=== PATIENT | female | born 1960 | race Caucasian/White ===

== ENCOUNTER 2017-12-01 17:15 | Emergency (ER) | payer MEDICARE, SELFPAY ==
[2017-12-01 17:16] VITALS: BP 168/106; PULSE 99; RESP 17; TEMP 37.3; O2SAT 98; BMI 36.9
--- NOTE | 2017-12-01 19:37 | CT_ITS ---
STUDY: CT ABDOMEN AND PELVIS WITHOUT CONTRAST REASON FOR EXAM: Female, 57 years old. RIGHT FLANK PAIN, RODS IN LUMBAR RADIATION DOSAGE (If Supplied By Facility): CTDIvol = ( 23.06 ) mGy, DLP = ( 1267.61 ) mGycm TECHNIQUE: Transaxial images were obtained from the dome of the diaphragm to the symphysis pubis without oral contrast, and without intravenous contrast. Sagittal and coronal images were reconstructed. Individualized dose optimization techniques were used for this CT. COMPARISON: None. FINDINGS: The visualized lung bases are unremarkable. The visualized portions of the heart are within normal limits. Normal liver. There are surgical clips in the gallbladder fossa consistent with a prior cholecystectomy. No biliary ductal dilatation. Normal spleen. Normal pancreas. Normal bilateral adrenal glands. Normal right kidney. Normal left kidney. Normal visualized stomach. Normal small intestine. There are multiple colonic diverticula consistent with diverticulosis. The appendix is visualized and appears normal. There is diffuse atherosclerotic calcification of the abdominal aorta, without a demonstrated aneurysm. Normal inferior vena cava. Normal retroperitoneum. Normal urinary bladder. The uterus appears absent. No deep pelvic mass. Normal abdominal wall. There is lower lumbar fusion at L4-L5 with bilateral pedicle screws, posterior rods and prior laminectomy. Diffuse degenerative spondylosis noted. CT/Abdomen/Pelvis without Cont IMPRESSION: No acute abnormality. No evidence of renal stone or obstruction. Diverticula the colon without evidence of diverticulitis. No evidence of appendicitis. Degenerative spondylosis. See above. Electronically Signed: Blessing Hernandes MD at 20:40 EST Tel , Service support ,
[2017-12-01 20:07] LABS: Bacteria 0 SEEN /hpf (None Seen); Mucous, Urine 0 SEEN /hpf (<or=2+); Red Blood Cells-Urine 0 SEEN /hpf (0-5)
[2017-12-01 20:08] LABS: Color, Urine Yellow (Yellow); Glucose, Dipstick Normal (Normal); Ketone-Dipstick Negative (Negative); Leukocyte Esterase-Dipstick 500 /ul (Negative); Nitrite-Dipstick Negative (Negative); Occult Blood-Urine 10 /ul (Negative); Protein-Dipstick Negative (Negative); Specific Gravity, Urine 1.015 (1.002-1.030); Urine Bilirubin Dipstick Negative (Negative); Urine Clarity Sl. Cloudy (Clear); Urine Urobilinogen Normal (Normal)
[2017-12-01] MEDS: Ketorolac 60 MG/2 ML Vial IM (20:08)
[2017-12-01 20:25] LABS: Squamous Epithelial Cells - UA 5-10 SEEN /hpf (5-10); White Blood Cells 5-10 SEEN /hpf (0-5)
[2017-12-01 20:26] LABS: Yeast-Urine 1+ /hpf (None Seen)
--- NOTE | 2017-12-01 21:49 | ED.VISSUMM ---
- ER Visit Summary Date of Service: 12/01/17 Chief Complaint: Right side pain History of Present Illness: The patient is a 57 F who states that she chronically has low back pain due to rods in her back. She is supposed to be going to pain management but has gotten the referral yet. Patient states that she fell a couple weeks ago since that time has had pain in her right side wrapping down towards her hip slightly anterior onto the abdomen. She notes it hurts to move. There is been no rashes. No hematuria. Eating and drinking normally. Physical Examination: Febrile vital signs are stable patient is tenderness to palpation along the right abdominal oblique musculature. There is no guarding or rebound. Normal bowel sounds. No ecchymosis. Test Results: Urinalysis contaminated with 5-[address] Otherwise negative[address] the flank was negative. Emergency Department Course and Treatment: Patient received a dose of Toradol. Repeat examination finds her sleeping. An oars report was performed she does have [place] at home. She also gets Flexeril. I believe the patient most likely has a oblique muscle strain possibly even a small tear and should recover with supportive treatment. Impression: 1. Right abdominal oblique strain This note was generated with [employer] dictation software. It may contain incorrect words, spelling, and punctuation that were not noted in review of the chart prior to signing ED Disposition - Plan for ED Patient: Disposition: Home or Assisted Living Chief Complaint: Back Instructions: ED Strain Abdominal Muscle Referrals: Malik Torres MD [Primary Care Provider] - 1 Week if not improving
[2017-12-01 22:00] VITALS: BP 154/70; PULSE 78; RESP 18; O2SAT 96
== END 2017-12-01 22:00 | disposition home or self-care (01) ==
PROVIDERS: Emergency Provider Emergency Medicine; Family Provider Family Medicine; PCP Family Medicine
DX: S39.011A Strain of muscle, fascia and tendon of abdomen, initial encounter (principal); W19.XXXA Unspecified fall, initial encounter; Y93.9 Activity, unspecified; Y92.9 Unspecified place or not applicable; I25.10 Atherosclerotic heart disease of native coronary artery without angina pectoris; E11.9 Type 2 diabetes mellitus without complications; Z79.4 Long term (current) use of insulin; J44.9 Chronic obstructive pulmonary disease, unspecified; Z72.0 Tobacco use; K21.9 Gastro-esophageal reflux disease without esophagitis; M54.5 Low back pain; G89.29 Other chronic pain; Z79.01 Long term (current) use of anticoagulants; Z79.899 Other long term (current) drug therapy
CPT/HCPCS: 74176; 81001; 96372; 99282

== ENCOUNTER → 2017-12-13 10:43 | Outpatient (CLI) | payer MEDICARE, SELFPAY ==
--- NOTE | 2017-12-13 10:49 | RAD_ITS ---
STUDY: X-RAY - PELVIS AND BILATERAL HIPS REASON FOR EXAM: Female, 57 years old. Right hip pain. TECHNIQUE: Radiological exam, hip, bilateral, with pelvis when performed; minimum of 5 views COMPARISON: None. FINDINGS: There is a non-specific bowel gas pattern. Normal visualized soft tissue structures. There is evidence of posterior fusion of the lumbosacral spine with L4 and L5 laminectomies. Normal bilateral iliac wings, sacroiliac joints and visualized sacrum. Normal bilateral superior and inferior pubic rami. Normal pubic symphysis. Normal bilateral ischial tuberosities. Normal visualized right femoral head. There is osteoarthritic spur formation of the right acetabular rim. There is mild articular joint space narrowing of the right hip. Normal visualized left femoral head. There is osteoarthritic spur formation of the left acetabular rim. There is mild articular joint space narrowing of the left hip. RAD/Hips B/L min 2 views w/ Pelvis IMPRESSION: 1. Mild degenerative changes of the hips. 2. Surgical changes of the lower lumbar spine. Electronically Signed: Oscar Olson DO at 18:18 EST Tel [phone], Service support ,
--- NOTE | 2017-12-13 10:51 | RAD_ITS ---
STUDY: X-RAY - LUMBAR SPINE REASON FOR EXAM: Female, 57 years old. Chronic back pain. TECHNIQUE: 5 view(s) of the lumbar spine were obtained. COMPARISON: April 22, 2015. FINDINGS: There is mild flattening of the lumbar lordosis. There is no substantial scoliosis. There is a normal alignment of the vertebrae. Again seen is posterior fusion of L3-S1. The hardware is intact and in satisfactory position. There is evidence of L4 and L5 laminectomies. There is disc space narrowing and endplate spondylosis most marked at L3-4. This appears stable. There is no evidence of acute fracture or loss of vertebral axial height. There is no demonstrated spondylolysis of the pars interarticulares. There is atherosclerotic calcification of the abdominal aorta without a demonstrated aneurysm. RAD/L/S Spine Min 4 Views IMPRESSION: 1. Posterior fusion of L4 S1 with laminectomies. This is unchanged from prior study. 2. Minimal degenerative changes of the upper lumbar spine stable when compared to the previous exam. Electronically Signed: Oscar Olson DO at 16:55 EST Tel [phone], Service support ,
[2017-12-13 11:11] LABS: Mucous, Urine 0 SEEN /hpf (<or=2+)
[2017-12-13 12:14] LABS: Color, Urine Yellow (Yellow); Glucose, Dipstick 250 mg/dl (Normal); Ketone-Dipstick 5 mg/dl (Negative); Leukocyte Esterase-Dipstick 500 /ul (Negative); Nitrite-Dipstick Positive (Negative); Occult Blood-Urine 10 /ul (Negative); Protein-Dipstick 30 mg/dl (Negative); Specific Gravity, Urine 1.025 (1.002-1.030); Urine Bilirubin Dipstick Negative (Negative); Urine Clarity Sl. Cloudy (Clear); Urine Urobilinogen Normal (Normal)
[2017-12-13 12:21] LABS: Bacteria 2+ /hpf (None Seen); Red Blood Cells-Urine 0-5 SEEN /hpf (0-5); Squamous Epithelial Cells - UA 0-5 SEEN /hpf (5-10); White Blood Cells 50-100 SEEN /hpf (0-5)
[2017-12-13 12:24] LABS: Absolute Neutrophil Count 5.7 X10^3/uL (2.0-7.7); Basophil# 0.03 X10^3/uL; Basophil% 0.4 % (0-1); Eosinophil# 0.32 X10^3/uL; Eosinophils% 3.7 % (0-5); Hematocrit 43.7 % (37-47); Hemoglobin 14.5 g/dl (12.0-15.0); Lymphocyte % 24.6 % (19-41); Mean Corp Hgb Conc 33.2 g/gl (32-36); Mean Corpuscular Hgb 29.5 pg (27.0-32.0); Mean Corpuscular Volume 88.8 fL (81-99); Mean Platelet Vol. 10.4 fl (6.2-12.0); Monocyte% 4.7 % (0-10); Neutrophil # 5.68 X10^3/uL (2.7-7.7); Neutrophil % 66.4 % (47-70); Platelet Count 258 K/mm3 (150-450); RBC Distribution Width CV 13.6 % (11.6-14.6); RBC Distribution Width SD 43.6 fl (35.1-43.9); Red Blood Count 4.92 M/mm3 (4.2-5.4); White Blood Count 8.6 K/mm3 (4.4-11.0)
[2017-12-13 12:32] LABS: POSITIVE COUNT NO; POSITIVE DIFFERENTIAL NO; POSITIVE MORPHOLOGY NO
[2017-12-13 12:39] LABS: Vitamin B12 570 pg/mL (211-911)
[2017-12-13 12:42] LABS: Microalbumin,Random Urine 36.1 mg/L (NO RANGE EST.); Microalbumin:Creatinine Ratio 14.2 mg/g CRE (<30 mg/g CRE)
[2017-12-13 12:44] LABS: Amphetamine Urine VISTA NEGATIVE (<1000 ng/mL); Barbiturate Urine VISTA NEGATIVE (< 200 ng/mL); Benzodiazepine Urine VISTA NEGATIVE (< 200 ng/mL); Cocaine Urine VISTA NEGATIVE (< 300 ng/mL); Ecstacy Urine VISTA POSITIVE (< 500 ng/mL); Methadone Urine VISTA NEGATIVE (< 300 ng/mL); PCP Urine VISTA NEGATIVE (< 25 ng/mL); THC Urine VISTA NEGATIVE (< 50 ng/mL); Vista UDS pH Range 5
[2017-12-13 12:58] LABS: ALB/GLOB Ratio 0.9 RATIO (0.9-2.4); AST(SGOT) 16 U/L (15-37); Alanine Aminotransfer ALT/SGPT 31 U/L (13-56); Albumin, Serum 3.5 g/dL (3.2-5.0); Alkaline Phosphatase 78 U/L (45-117); Anion Gap 9 (5-15); BUN 16 mg/dL (7-18); BUN/Creat Ratio 16.8 RATIO (10-20); Calcium,Total 8.5 mg/dL (8.5-10.1); Chloride 103 mmol/L (98-107); Cholesterol 216 mg/dL (200); Creatinine, Serum 0.95 mg/dL (0.55-1.02); EST Glomerular Filtration Rate 64 mL/min (>60); Est Glom Filt Rate - Afr Amer 78 mL/min (>60); Glucose 246 mg/dL (74-106); High Density Lipoprotein 33 mg/dL; Potassium 4.5 mmol/L (3.5-5.1); Protein, Total 7.5 g/dL (6.4-8.2); Sodium Level 138 mmol/L (136-145); Thyroid Stim Hormone (TSH) 2.49 uIU/mL (0.358-3.74); Triglycerides 488 mg/dL
[2017-12-13 13:05] LABS: Hemoglobin A1c 9.4 % (4.2-6.3)
== END ==
PROVIDERS: Family Provider Family Medicine; PCP Family Medicine; Visit Provider Family Medicine
DX: M16.0 Bilateral primary osteoarthritis of hip (principal); M48.061 Spinal stenosis, lumbar region without neurogenic claudication; M47.896 Other spondylosis, lumbar region; I25.10 Atherosclerotic heart disease of native coronary artery without angina pectoris; G62.9 Polyneuropathy, unspecified
CPT/HCPCS: 36415; 72110; 73521; 80053; 80061; 80307; 81001; 82043; 82570; 82607; 83036; 84443; 85025; 87086; 87088

== ENCOUNTER 2018-01-05 15:46 | Emergency (ER) | payer MEDICARE, SELFPAY ==
[2018-01-05 15:47] VITALS: BP 132/79; PULSE 115; RESP 14; TEMP 37.3; O2SAT 97; BMI 36.2
[2018-01-05] MEDS: 0.9% Normal Saline 1,000 ML 1000 ML IV (16:31)
[2018-01-05 16:44] LABS: Absolute Lymphocyte Count 0.42 X10^3/ul (0.83-4.51); Basophil# 0.01 X10^3/uL; Basophil% 0.1 % (0-1); Eosinophil# 0.14 X10^3/uL; Eosinophils% 1.4 % (0-5); Hematocrit 45.4 % (37-47); Hemoglobin 15.3 g/dl (12.0-15.0); Lymphocyte # 0.42 X10^3/ul (4.0); Lymphocyte % 4.3 % (19-41); Mean Corp Hgb Conc 33.7 g/gl (32-36); Mean Corpuscular Hgb 29.7 pg (27.0-32.0); Mean Corpuscular Volume 88.2 fL (81-99); Mean Platelet Vol. 10.2 fl (6.2-12.0); Monocyte# 0.22 X10^3/uL; Monocyte% 2.2 % (0-10); Neutrophil % 91.9 % (47-70); Platelet Count 213 K/mm3 (150-450); RBC Distribution Width CV 13.5 % (11.6-14.6); RBC Distribution Width SD 43.2 fl (35.1-43.9); Red Blood Count 5.15 M/mm3 (4.2-5.4); White Blood Count 9.8 K/mm3 (4.4-11.0)
[2018-01-05 16:48] LABS: Differential Indicated SCAN CRITERIA MET; POSITIVE COUNT NO; POSITIVE DIFFERENTIAL YES; POSITIVE MORPHOLOGY NO
[2018-01-05 16:54] LABS: Anion Gap 8 (5-15); BUN 21 mg/dL (7-18); BUN/Creat Ratio 19.4 RATIO (10-20); Calcium,Total 8.2 mg/dL (8.5-10.1); Chloride 103 mmol/L (98-107); Creatinine, Serum 1.08 mg/dL (0.55-1.02); EST Glomerular Filtration Rate 55 mL/min (>60); Est Glom Filt Rate - Afr Amer 67 mL/min (>60); Estimated Creatinine Clearance 59.34 ml/min; Glucose 251 mg/dL (74-106); Potassium 4.4 mmol/L (3.5-5.1); Sodium Level 136 mmol/L (136-145)
[2018-01-05 17:31] LABS: Anisocytosis RARE; Platelet Estimate ADEQUATE (ADEQ)
[2018-01-05] MEDS: DiphenhydrAMINE 50 MG/ML Syringe 25 MG IV (17:57)
[2018-01-05] MEDS: Ketorolac 30 MG/ML Syringe IV (17:58)
[2018-01-05] MEDS: proCHLORPERazine 10 MG/2 ML Vial IV (17:58)
[2018-01-05 17:59] VITALS: BP 146/71; PULSE 113; RESP 15; O2SAT 97
--- NOTE | 2018-01-05 18:20 | ED.RN ---
+ C-diff reported to Dr. Howe.
--- NOTE | 2018-01-05 18:25 | ED.VISSUMM ---
- ER Visit Summary Date of Service: 01/05/18 Chief Complaint: Nausea and vomiting History of Present Illness: The patient is a [address] Torres. She reports that she has had crampy abdominal pain since this morning. Is 7 out of 10 at worst and she is pain-free currently. States is worsened by eating and relieved by nothing. She is vomited 7 times. No blood or emesis. She denies any diarrhea. She reports that her last bowel movement was today and it was loose. No blood in her stools or black tarry stools. She does complain of subjective fever and chills. Patient denies sick contacts. Has not been camping out of the country. No possible bad food exposure. Does not drink well water. No recent antibiotic use. Physical Examination: Vitals: Stable. Afebrile. General: Well-nourished and well-developed. Head: Normocephalic atraumatic. Neck: Supple, no lymphadenopathy. No JVD. Nontender. Cardiovascular: Regular rate and rhythm. No murmurs. Respiratory: No respiratory distress. Clear to auscultation bilaterally. Abdominal: Soft, nontender, nondistended, normal bowel sounds. No guarding, rebound, or peritoneal signs. Back: Nontender. Extremities: Nontender, no edema. Skin: Normal color, no rash. Neurologic: Alert and oriented ?3. Cranial nerves II through XII are intact. Normal strength and sensation. Psych: Normal affect. Test Results: CBC is marked for hemoglobin of 15.3, segmented neutrophils of 92, monocytes of 4. Chem-7 is more for glucose 251, BUN 21, creatinine 1.08, calcium 8.2. Patient did have an episode of diarrhea in the emergency department and this was sent to the lab. It was positive for Clostridium difficile. Emergency Department Course and Treatment: Patient was initially treated with Phenergan and morphine IV. She asked for a dose of Toradol and was given this. When her C. difficile returned she was given vancomycin p.o. Treatment Plan: Patient be discharged on vancomycin, [place], and Zofran. Instructed to follow-up with Dr. Landaverde in 10-14 days for another exam. Return to the emergency department if she is unable to keep the antibiotics down or for any other concerns. Disposition: To home in improved and stable condition. Impression: 1. Vomiting/diarrhea. 2. Clostridium difficile colitis. This note was generated with [employer] dictation software. It may contain incorrect words, spelling, and punctuation that were not noted in review of the chart prior to signing ED Disposition - Plan for ED Patient: Chief Complaint: General Illness Instructions: Clostridium difficile Infection Prescriptions: Hydrocodone Bitart/Apap 5-325 [[place] 5/325] 1 - 2 tablet PO Q4H PRN PRN 3 Days #12 tablet PRN Reason: Pain Ondansetron [Zofran Odt] 4 mg PO Q8H PRN PRN #10 tablet PRN Reason: Nausea Vancomycin [Vancocin] 125 mg PO Q6H #56 capsule Referrals: Malik Torres MD [Primary Care Provider] - 1-2 Weeks
[2018-01-05 19:12] VITALS: BP 130/83; PULSE 110; RESP 13; O2SAT 95
--- NOTE | 2018-01-05 19:18 | ED.RN ---
Verbal and written d/c instructions given. All questions answered. Extensive teaching complete about home care for c-diff. Gait slow and steady out of department.
== END 2018-01-05 19:19 | disposition home or self-care (01) ==
PROVIDERS: Emergency Provider Emergency Medicine; Family Provider Family Medicine; PCP Family Medicine
DX: A04.72 Enterocolitis due to Clostridium difficile, not specified as recurrent (principal); R11.2 Nausea with vomiting, unspecified; I25.10 Atherosclerotic heart disease of native coronary artery without angina pectoris; I10 Essential (primary) hypertension; E11.9 Type 2 diabetes mellitus without complications; Z79.4 Long term (current) use of insulin; J44.9 Chronic obstructive pulmonary disease, unspecified; Z79.01 Long term (current) use of anticoagulants; Z79.899 Other long term (current) drug therapy; Z72.0 Tobacco use
CPT/HCPCS: 80048; 85025; 87493; 96361; 96374; 96375; 99285; J7030; J7050; A4216

== ENCOUNTER → 2018-01-30 14:01 | Outpatient (CLI) | payer MEDICARE, SELFPAY | PROVIDERS: Family Provider Family Medicine; PCP Family Medicine; Visit Provider Family Medicine | DX: A04.72 Enterocolitis due to Clostridium difficile, not specified as recurrent (principal) | CPT/HCPCS: 87493 ==

== ENCOUNTER 2018-03-26 10:34 | Emergency (ER) | payer MEDICARE, SELFPAY ==
[2018-03-26 10:35] VITALS: BP 139/69; PULSE 97; RESP 15; TEMP 37; BMI 35.5
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
--- NOTE | 2018-03-26 11:01 | ED.DEP ---
ED Disposition - Plan for ED Patient: Disposition: Home or Assisted Living Chief Complaint: Back Instructions: ED Spasm Back No Trauma Prescriptions: Hydrocodone/Acetaminophen [[place] 5-325 Tablet] 1 ea PO Q4H PRN PRN #10 tab PRN Reason: Pain Referrals: Ralph Mcclendon MD [Primary Care Provider] - 3-5 Days if not improving Additional Instructions: [place] for pain. Call follow-up your primary care physician. Return to ER if increasing pain, fever, bowel or bladder incontinence or leg weakness.
[2018-03-26] MEDS: HYDROcodone Bitartrate/Apap 5/325 Tablet PO (11:06)
[2018-03-26] MEDS: Ketorolac 60 MG/2 ML Vial IM (11:06)
[2018-03-26 11:08] VITALS: BP 154/87; PULSE 91; TEMP -8.8; TEMP 16; O2SAT 97
== END 2018-03-26 11:30 | disposition home or self-care (01) ==
PROVIDERS: Emergency Provider Emergency Medicine; Family Provider Family Medicine; PCP Family Medicine
DX: M54.5 Low back pain (principal); G89.29 Other chronic pain; Z98.1 Arthrodesis status; I25.10 Atherosclerotic heart disease of native coronary artery without angina pectoris; I25.2 Old myocardial infarction; E11.9 Type 2 diabetes mellitus without complications; J44.9 Chronic obstructive pulmonary disease, unspecified; Z95.5 Presence of coronary angioplasty implant and graft; Z79.4 Long term (current) use of insulin; Z79.01 Long term (current) use of anticoagulants; Z79.82 Long term (current) use of aspirin; Z79.899 Other long term (current) drug therapy; Z72.0 Tobacco use
CPT/HCPCS: 96372; 99282

== ENCOUNTER 2018-05-05 18:07 | Emergency (ER) | payer MEDICARE, SELFPAY ==
[2018-05-05 18:08] VITALS: BP 133/74; PULSE 89; RESP 18; TEMP 36.9; O2SAT 99; BMI 35.2
--- NOTE | 2018-05-05 18:50 | ED.VISSUMM ---
- ER Visit Summary Date of Service: 05/05/18 Chief Complaint: Avulsed right great toenail History of Present Illness: The patient is a 57 F insulin-dependent diabetic and history of CAD with 2 cardiac stents. She was removing her show an that her nail stuck in the shoe and pulled off her entire right great toenail. This occurred several hours ago. She said it was bleeding but has since stopped. Physical Examination: Well-appearing middle-age female. Vital signs are stable afebrile. H EENT exam unremarkable. Neck nontender. Lungs clear to auscultation bilaterally. Heart regular rate and rhythm no murmur. Abdomen soft nontender. She is moving all 4 extremities. Neurovascular intact. Her right great toenail is completely avulsed and gone. Currently there is no active bleeding. No signs of infection. No bony deformity. I did clean the area and placed half inch packing gauze underneath the proximal nail bed to allow the new nail to grow out. Patient was instructed to keep this going until the new nail grew out if it was going to. Test Results: None Emergency Department Course and Treatment: Area will be cleaned and dressed she will be discharged home. Patient may try to get some fake nails and keep it underneath the proximal cuticle to allow the new nail to grow out. Treatment Plan: Watch for any signs of infection. Disposition: Discharge Impression: Right great toenail avulsed This note was generated with [employer] dictation software. It may contain incorrect words, spelling, and punctuation that were not noted in review of the chart prior to signing ED Disposition - Plan for ED Patient: Chief Complaint: Lower Extremity Injury Referrals: Ralph Mcclendon MD [Primary Care Provider] -
--- NOTE | 2018-05-05 18:52 | ED.DEP ---
ED Disposition - Plan for ED Patient: Disposition: Home or Assisted Living Chief Complaint: Lower Extremity Injury Instructions: ED Avulsion Nail Complete Referrals: Ralph Mcclendon MD [Primary Care Provider] - As Needed Additional Instructions: Keep area clean. Bike ointment to prevent infection. Return if redness, pus or large swelling these could be signs of infection. Place a fake nail underneath the proximal nail bed to allow the new nail to grow out. Or you may also use the packing material.
[2018-05-05 19:04] VITALS: RESP 18
== END 2018-05-05 19:05 | disposition home or self-care (01) ==
LOC: ED 18:56
PROVIDERS: Emergency Provider Emergency Medicine; Family Provider Family Medicine; PCP Family Medicine
DX: S91.201A Unspecified open wound of right great toe with damage to nail, initial encounter (principal); X58.XXXA Exposure to other specified factors, initial encounter; Y93.89 Activity, other specified; Y92.9 Unspecified place or not applicable; I25.10 Atherosclerotic heart disease of native coronary artery without angina pectoris; I25.2 Old myocardial infarction; Z95.5 Presence of coronary angioplasty implant and graft; E11.9 Type 2 diabetes mellitus without complications; Z79.4 Long term (current) use of insulin; Z79.01 Long term (current) use of anticoagulants; Z79.899 Other long term (current) drug therapy; Z72.0 Tobacco use
CPT/HCPCS: 99282

== ENCOUNTER 2018-10-29 11:30 | Emergency (ER) | payer MEDICARE, MEDICAID, SELFPAY ==
[2018-10-29 11:31] VITALS: BP 126/66; PULSE 94; RESP 17; TEMP 36.9; O2SAT 97; BMI 36.1
--- NOTE | 2018-10-29 11:55 | RAD_ITS ---
STUDY: X-RAY - RIGHT FOOT CLINICAL: Female, 58 years old. Fall. Right foot and ankle pain. TECHNIQUE: 3 view(s) of the foot. COMPARISON: October 24, 2017 FINDINGS: There is an inferior calcaneal spur with ossification of the plantar fascia. Normal visualized subtalar, talonavicular, calcaneocuboid, tarsal and tarsometatarsal articulations. There is a minimally displaced transverse fracture of the base of the fifth metatarsal. Normal metatarsophalangeal joint of the great toe. Normal tibial and fibular sesamoid bones. Normal interphalangeal joint of the great toe. Normal phalanges of the great toe. Normal second through fifth metatarsophalangeal joints. Normal interphalangeal joints and phalanges of the lesser toes. The soft tissue structures are otherwise unremarkable. RAD/Foot min 3 Views IMPRESSION: Fifth metatarsal fracture as described. Electronically Signed: Vasyl Cooper MD at 12:39 EST , Service support ,
--- NOTE | 2018-10-29 11:55 | RAD_ITS ---
STUDY: X-RAY - RIGHT ANKLE REASON FOR EXAM: Female, 58 years old. Follow-up with right foot and ankle pain. TECHNIQUE: 3 view(s) of the ankle. COMPARISON: None. FINDINGS: There is generalized osteopenia. Normal visualized distal tibia and fibula. Normal medial and lateral malleoli. Normal tibiotalar articulation and ankle mortise. There is an inferior calcaneal spur. The visualized subtalar, talonavicular, calcaneocuboid and tarsal articulations are normal. There is ossification of the plantar fascia. There is a transverse fracture of the base of the fifth metatarsal. RAD/Ankle min 3 Views IMPRESSION: Transverse fracture of the base of the fifth metatarsal with minimal displacement. Electronically Signed: Vasyl Cooper MD at 12:25 EST , Service support ,
--- NOTE | 2018-10-29 13:10 | ED.DCSUM_ITS ---
- ER Visit Summary Date of Service: 10/29/18 Chief Complaint: Foot injury History of Present Illness: The patient is a 58 F presenting secondary to a foot injury. Patient reports that 2 days ago she suffered a mechanical fall. It was a plantar inversion injury of the right foot. Patient reports that she has been bearing weight on it since then, actually served [employer] 2 days ago, and traveled here from [place] on an airplane yesterday. She reports that this is just the first time she has been able to get it checked out. She denies any other injuries. Physical Examination: Lower extremity exam shows swelling over the midfoot with tenderness to palpation diffusely. Normal range of motion of the toes. Normal capillary refill, normal distal sensation. Minimal tenderness palpation of the lateral malleolus of the ankle. Test Results: X-rays are negative of the ankle. X-rays of the foot show a nondisplaced Ramirez fracture Emergency Department Course and Treatment: Patient presented secondary to a foot injury. X-rays show a Ramirez fracture. Patient was educated on the importance of being nonweightbearing and follow-up with an orthopedist. Patient is from out [facility], but will be returning home after the holidays. She will be placed in a walking boot, and will be given crutches. She will follow-up with an orthopedist upon return home to ensure healing Disposition: Discharge Impression: 1. Right foot Ramirez fracture This note was generated with [employer] dictation software. It may contain incorrect words, spelling, and punctuation that were not noted in review of the chart prior to signing ED Disposition - Plan for ED Patient: Disposition: Home or Assisted Living Chief Complaint: Lower Extremity Injury Diagnosis: Ramirez fracture Instructions: ED Fx Foot Referrals: [facility] Doctor,Out of [Primary Care Provider] - (Followup with an orthopedist immediately upon return home)
[2018-10-29 13:26] VITALS: PULSE 92; RESP 16; O2SAT 99
== END 2018-10-29 13:26 | disposition home or self-care (01) ==
PROVIDERS: Emergency Provider Emergency Medicine
DX: S92.354A Nondisplaced fracture of fifth metatarsal bone, right foot, initial encounter for closed fracture (principal); W18.30XA Fall on same level, unspecified, initial encounter; I10 Essential (primary) hypertension; E11.9 Type 2 diabetes mellitus without complications; Z79.4 Long term (current) use of insulin; Z79.899 Other long term (current) drug therapy
CPT/HCPCS: 73610; 73630; 99284

== ENCOUNTER 2019-07-17 12:46 | Emergency (ER) | payer MEDICARE, MEDICAID, SELFPAY ==
[2019-07-15 14:25] VITALS: BMI 37.5
[2019-07-17 12:47] VITALS: BP 134/64; PULSE 80; RESP 16; TEMP 36.4; O2SAT 98; BMI 40.3
[2019-07-17 12:56] VITALS: BP 134/64; PULSE 80; RESP 16; TEMP 36.4; O2SAT 98
--- NOTE | 2019-07-17 13:33 | ED.VISSUMM ---
- ER Visit Summary Date of Service: 07/17/19 Chief Complaint: Right ankle redness History of Present Illness: The patient is a 58 F who presents with redness and swelling to her right ankle that has been getting worse over the past 3 days. Patient states she had surgery on her right ankle when she was in [place]. Patient is here visiting from [place]. Patient states she was ordered a prescription but was unable to fill it due to cost. Patient denies any fevers or chills. Patient denies any paresthesias or weakness. Patient states that her pain is worse with some movements. Patient denies any discharge or drainage. Physical Examination: Vital signs are stable. Patient is afebrile. Patient is in no acute distress. Skin is warm and dry. There is erythema on the lateral aspect of the right ankle. There is full range of motion of the right ankle. There is no bony crepitance or step-off. There is no discharge or drainage. There is no abscess formation. There is no calf tenderness. Pedal pulses are equal bilaterally. Sensation was intact to light touch in all digits. Capillary refill was less than 2 seconds in all digits. Emergency Department Course and Treatment: Patient was given a prescription for Keflex. Social work was in to talk to the patient regarding prescription assistance. Patient was instructed to follow-up with her primary care physician and orthopedic surgeon when she gets back to [place]. Patient understood and was agreeable with the plan. All questions were answered. Disposition: Discharge home Impression: Cellulitis right ankle This note was generated with [employer] dictation software. It may contain incorrect words, spelling, and punctuation that were not noted in review of the chart prior to signing ED Disposition - Plan for ED Patient: Disposition: Home or Assisted Living Diagnosis: Cellulitis of right ankle Instructions: Cellulitis Prescriptions: Cephalexin [Keflex] 500 mg PO Q6 #40 cap Prescription Printed Referrals: [facility] Doctor,Out of [Primary Care Provider] - 5-7 Days
[2019-07-17] MEDS: Cephalexin 250 MG Capsule 500 MG PO (13:44)
--- NOTE | 2019-07-17 13:44 | CM.ED ---
SOCIAL WORK INFORMANT: DR. TOURE REASON FOR REFERRAL: RESOURCES MET WITH PATIENT IN ROOM. INTRODUCED ROLE AND REASON FOR REFERRAL. PATIENT STATES IS FROM [place] AND WAS HERE FOR FAIR AND VISITING FAMILY. PATIENT REPORTS IS MOVING TO [place] IN AUGUST. DISCUSSED TRANSFERRING MEDICAID TO [place] AND PROVIDED WITH CONTACT INFORMATION FOR [place] BENEFITS. PATIENT STATES WAS GIVING PRESCRIPTION FOR ANTIBIOTIC PREVIOUSLY THAT WAS TO EXPENSIVE. DR. TOURE TO WRITE FOR LESS EXPENSIVE ANTIBIOTIC AND PATIENT'S STATE WILL GET SCRIPT FILLED AT [facility]. ALL QUESTIONS ANSWERED. 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
== END 2019-07-17 13:48 | disposition home or self-care (01) ==
LOC: ED 13:36
PROVIDERS: Emergency Provider Emergency Medicine
DX: L03.115 Cellulitis of right lower limb (principal); I25.10 Atherosclerotic heart disease of native coronary artery without angina pectoris; I10 Essential (primary) hypertension; J44.9 Chronic obstructive pulmonary disease, unspecified; E11.9 Type 2 diabetes mellitus without complications; Z72.0 Tobacco use; Z95.5 Presence of coronary angioplasty implant and graft; Z79.02 Long term (current) use of antithrombotics/antiplatelets; Z79.4 Long term (current) use of insulin; Z79.899 Other long term (current) drug therapy
CPT/HCPCS: 99283

== ENCOUNTER → 2019-10-17 14:46 | Outpatient (CLI) | payer MEDICARE, MEDICAID, SELFPAY ==
[2019-10-17 14:43] VITALS: BMI 40.3
--- NOTE | 2019-10-17 14:49 | RAD_ITS ---
STUDY: X-RAY - RIGHT ANKLE REASON FOR EXAM: Female, 59 years old. Pain. No known injury. TECHNIQUE: 3 view(s) of the ankle. COMPARISON: Comparison is made with prior examination dated October 29, 2018. FINDINGS: Normal visualized distal tibia and fibula. Normal medial and lateral malleoli. Normal tibiotalar articulation and ankle mortise. Small plantar spur. Prior screw fixation of a fracture at the base of the fifth metatarsal. The visualized subtalar, talonavicular, calcaneocuboid and tarsal articulations are normal. Lateral soft tissue swelling. RAD/Ankle min 3 Views IMPRESSION: Soft tissue swelling. Electronically Signed: Adam Berry, at 15:19 EST , Service support ,
== END ==
PROVIDERS: Family Provider Family Medicine; PCP Family Medicine; Referring Provider Physician Assistant; Visit Provider Physician Assistant
DX: M25.571 Pain in right ankle and joints of right foot (principal)
CPT/HCPCS: 73610

== ENCOUNTER → 2019-11-18 13:42 | Outpatient (CLI) | payer MEDICARE, MEDICAID, SELFPAY ==
[2019-10-17 14:43] VITALS: BMI 40.3
--- NOTE | 2019-11-18 13:55 | RAD_ITS ---
STUDY: X-RAY - LUMBAR SPINE REASON FOR EXAM: Female, 59 years old. pain. prev surgery TECHNIQUE: 3 view(s) of the lumbar spine were obtained. COMPARISON: None FINDINGS: Normal lumbar lordosis. The patient is status post posterior fusion from L4 to S1. There is associated posterior laminectomy. There is no substantial scoliosis. There is a normal alignment of the vertebrae. There is multilevel endplate spondylosis of the lumbar vertebrae. There is multi-level degenerative disc disease with multi-level disc space narrowing. There is no demonstrated fracture. There is atherosclerotic calcification of the abdominal aorta without a demonstrated aneurysm. Right upper quadrant surgical clips seen. RAD/Lumbar Spine 2 or 3 Views IMPRESSION: Spondylosis/degenerative disease with no acute fracture or subluxation. Postoperative changes as described above. Electronically Signed: Emelia Ortega MD at 1:59 EST , Service support ,
--- NOTE | 2019-11-18 13:57 | RAD_ITS ---
STUDY: X-RAY - THORACIC SPINE REASON FOR EXAM: Female, 59 years old. PAIN TECHNIQUE: 3 view(s) of the thoracic spine were obtained. COMPARISON: None. FINDINGS: Normal kyphosis of the thoracic spine. There is no substantial scoliosis. There is multilevel endplate spondylosis of the thoracic vertebrae. There is multilevel disc space narrowing of the thoracic spine. The soft tissue structures are unremarkable. RAD/Thoracic Spine 2 Views IMPRESSION: Spondylosis/degenerative disease with no acute fracture or subluxation. Electronically Signed: Emelia Ortega MD at 1:57 EST , Service support ,
== END ==
PROVIDERS: Family Provider Family Medicine; PCP Family Medicine
DX: M54.16 Radiculopathy, lumbar region (principal)
CPT/HCPCS: 72070; 72100

== ENCOUNTER 2019-12-21 17:22 | Inpatient (IN) | payer MEDICARE, MEDICAID, SELFPAY ==
[2019-12-10 14:53] VITALS: BMI 35.6
[2019-12-21] VITALS (9 sets, daily range): BP systolic 119–142; BP diastolic 56–75; PULSE 81–105; RESP 16–19; TEMP 37.1–39.5; O2SAT 94–97; BMI 35.6; BMI 34.4; BMI 34.5
--- NOTE | 2019-12-21 17:40 | EKG12_ITS ---
Test Reason : CP Blood Pressure : / mmHG Vent. Rate : 101 BPM Atrial Rate : 101 BPM P-R Int : 156 ms QRS Dur : 090 ms QT Int : 344 ms P-R-T Axes : 072 032 026 degrees QTc Int : 446 ms Sinus tachycardia Nonspecific T wave abnormality Abnormal ECG Confirmed by ZACH SHAVER, AMIE ([id number]), non linear editor ERWIN HUFF ([id number]) on 12/25/2019 8:54:17 AM Referred By: TALIA Confirmed By:AMIE SERRANO MD
--- NOTE | 2019-12-21 17:40 | CT_ITS ---
STUDY: CT BRAIN WITHOUT CONTRAST REASON FOR EXAM: Female, 59 years old. HEADACHE AND FATIGUE, COUGH, FEVER. Hx of heart stents, HTN, COPD RADIATION DOSAGE (If Supplied By Facility): CTDIvol = ( 44.99 ) mGy, DLP = ( 796.11 ) mGycm TECHNIQUE: Transaxial CT imaging of the brain was performed without administration of intravenous contrast material. Individualized dose optimization techniques were used for this CT. COMPARISON: 11/12/2017 FINDINGS: Normal soft tissue structures. Normal calvarium. Normal size ventricles and extra-axial spaces for the patient''s age. Normal white matter tracts of the cerebral hemispheres. Normal basal ganglia and thalami. Normal brainstem. Normal cerebellum. There is no intracranial hemorrhage. There are no findings of an acute ischemic infarction. Normal visualized paranasal sinuses. CT/Brain/Head without Contrast IMPRESSION: Normal unenhanced CT scan of the brain. Electronically Signed: Phoenix Holguin MD at 18:34 EST Tel , Service support ,
--- NOTE | 2019-12-21 17:45 | RAD_ITS ---
STUDY: X-RAY CHEST REASON FOR EXAM: Female, 59 years old. HEADACHE, GENERAL FATIGUE, COUGH, FEVER STARTING, CHEST PRESSURE YESTERDAY TECHNIQUE: Single AP portable view of the chest. COMPARISON: 11/07/2017 FINDINGS: The lungs are clear and expanded. There is no demonstrated pleural abnormality. Normal size heart. Normal mediastinum and timothy. Normal visualized pulmonary arteries. Normal visualized aortic arch and descending thoracic aorta. Normal visualized thoracic spine. Normal visualized ribs, clavicles, and shoulders. There is no demonstrated abnormality of the visualized soft tissue structures of the upper abdomen. RAD/Chest 1 View (Portable) IMPRESSION: Normal x-ray examination of the chest. Electronically Signed: Phoenix Holguin MD at 18:09 EST Tel , Service support ,
--- NOTE | 2019-12-21 17:45 | ED.DCSUM_ITS ---
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 Past Medical History - Allergies and Home Meds Allergies/Adverse Reactions: Allergies fluoxetine HCl [From Prozac] Allergy (Verified 12/21/19 17:26) Unknown jittery, difficulty breathing panic attack Primary Care Physician: Christopher Landaverde MD [Primary Care Provider] - Past Medical History: - - Hypertension hypercholesterolemia diabetes Surgical History: appendectomy, cholecystectomy, - - spinal discectomy/hardware, coronary artery stent, ulnar nerve surgery, arthroscopy of the knees, Smoking Status: Current every day smoker - Family History Paternal Family History: Family History (Last Reviewed 12/10/19 @ 16:07 by Karen Christensen MD) Mother Diabetes Hypertension Family History: Reports: COPD Maternal Family History: Family History (Last Reviewed 12/10/19 @ 16:07 by Karen Christensen MD) Mother Diabetes Hypertension Family History: Reports: Hypertension Review of Systems General: Reports: Chills, Fever Eyes: Denies: Visual changes - bilaterally ENT: Reports: Rhinorrhea. Denies: Bilateral ear pain, Sore throat Cardiovascular: Denies: Chest pain, Palpitations, Heart racing Respiratory: Reports: Cough. Denies: Dyspnea, Sputum Gastrointestinal: Denies: Abdominal pain Genitourinary: Denies: Dysuria Musculoskeletal: Denies: Myalgias Skin: Denies: Rash Neurological: Reports: Headache. Denies: Weakness Psych: Denies: Depression Endocrine: Denies: Polyuria Hematologic: Denies: Easy bruising Allergy: Denies: Uticaria Physical Exam Vital Signs/Narrative: Vital Signs Temp Pulse Resp BP Pulse Ox 12/21/19 17:23 103.1 F H 105 H 16 142/71 H 97 General: Well nourished, - - She appears in some distress Head: Normocephalic, Atraumatic Eyes: Perrl ENT: Moist mucous membranes, - - And upper airway congestion Neck: Supple, Nontender Cardiovascular: Regular rate, Regular rhythm, No murmurs Respiratory: No distress, CTA bilaterally Abdomen: Soft, Nontender Back: Nontender, Normal Inspection Extremities: Nontender, No edema Skin: Normal color Neurological: Alert, Oriented x3, Normal Strength, Normal Sensation Psychological: Normal affect Diagnostic/Tx/Re-eval - Rhythm Strip Rhythm Strip: Sinus Rhythm Rate: 101 Ectopy: None - EKG Initial EKG Interpretation: - - Sinus rhythm with a rate of 101. Normal DE interval. Normal QTc interval. Nonspecific ST changes throughout. Interpreted by emergency doctor - Medical Decision Making Patient has clinical influenza however her influenza test were negative she has myalgias, high fever, lethargy in the peak of influenza season which had rapid onset yesterday, I will treat her with Tamiflu I reevaluated she still feels quite ill therefore I will observe her in the hospital tonight. ED Disposition - Plan for ED Patient: Disposition: Acute Care Hospital [facility] Diagnosis: Influenza Referrals: Christopher Landaverde MD [Primary Care Provider] -
[2019-12-21] MEDS: Acetaminophen 500 MG Tablet 1000 MG PO (17:54)
[2019-12-21 18:02] LABS: Absolute Lymphocyte Count 1.31 X10^3/uL (0.83-4.51); Absolute Neutrophil Count 7.9 X10^3/uL (2.0-7.7); Basophil# 0.02 X10^3/uL; Basophil% 0.2 % (0-1); Eosinophil# 0.01 X10^3/uL; Eosinophils% 0.1 % (0-5); Hemoglobin 15.1 g/dL (12.0-15.0); Lymphocyte # 1.31 X10^3/ul (4.0); Lymphocyte % 13.4 % (19-41); Mean Corp Hgb Conc 32.8 g/dL (32-36); Mean Corpuscular Hgb 27.9 pg (27.0-32.0); Mean Platelet Vol. 9.8 fl (6.2-12.0); Monocyte% 5.1 % (0-10); NRBC Flagged by Analyzer 0 % (0-5); Neutrophil # 7.89 X10^3/uL (2.7-7.7); Neutrophil % 80.8 % (47-70); Platelet Count 215 K/mm3 (150-450); RBC Distribution Width CV 15.4 % (11.6-14.6); RBC Distribution Width SD 46.9 fl (35.1-43.9); Red Blood Count 5.41 M/mm3 (4.2-5.4); White Blood Count 9.8 K/mm3 (4.4-11.0)
[2019-12-21 18:18] LABS: ALB/GLOB Ratio 0.7 RATIO (0.9-2.4); AST(SGOT) 13 U/L (15-37); Alanine Aminotransfer ALT/SGPT 22 U/L (13-56); Albumin, Serum 3.2 g/dL (3.2-5.0); Alkaline Phosphatase 84 U/L (45-117); Anion Gap 7 (5-15); BUN 13 mg/dL (7-18); BUN/Creat Ratio 11.3 RATIO (10-20); Calcium,Total 8.6 mg/dL (8.5-10.1); Chloride 103 mmol/L (98-107); Creatinine, Serum 1.15 mg/dL (0.55-1.02); EST Glomerular Filtration Rate 51 mL/min (>60); Est Glom Filt Rate - Afr Amer 62 mL/min (>60); Estimated Creatinine Clearance 54.37 ml/min; Globulin 4.6 g/dL (2.2-4.2); Glucose 115 mg/dL (74-106); Protein, Total 7.8 g/dL (6.4-8.2); Sodium Level 137 mmol/L (136-145)
[2019-12-21 18:22] LABS: Bacteria 0 SEEN /hpf (None Seen); Mucous, Urine 0 SEEN /hpf (<or=2+)
[2019-12-21 18:24] LABS: Color, Urine Yellow (Yellow); Glucose, Dipstick Normal (Normal); Ketone-Dipstick 5 mg/dl (Negative); Leukocyte Esterase-Dipstick 25 /ul (Negative); Nitrite-Dipstick Negative (Negative); Occult Blood-Urine 25 /ul (Negative); Protein-Dipstick Negative (Negative); Urine Bilirubin Dipstick Negative (Negative); Urine Clarity Clear (Clear); Urine Urobilinogen Normal (Normal)
[2019-12-21 18:25] LABS: Lactic Acid 1.1 mmol/L (0.4-1.9)
[2019-12-21 18:32] LABS: Red Blood Cells-Urine 0-5 SEEN /hpf (0-5); Squamous Epithelial Cells - UA 0-5 SEEN /hpf (5-10); White Blood Cells 0-5 SEEN /hpf (0-5)
--- NOTE | 2019-12-21 20:07 | PCM.HP.STD ---
Problem List (1) Acute viral syndrome Status: Acute (2) Tobacco abuse Status: Chronic (3) Hyperlipidemia Status: Chronic Qualifiers: Hyperlipidemia type: unspecified Qualified Code(s): E78.5 - Hyperlipidemia, unspecified (4) Atherosclerosis of coronary artery of inupiat heart without angina pectoris Status: Chronic Qualifiers: Coronary Disease-Associated Artery/Lesion type: inupiat artery Qualified Code(s): I25.10 - Atherosclerotic heart disease of inupiat coronary artery without angina pectoris (5) Essential hypertension Status: Chronic (6) History of coronary artery stent placement Status: Chronic Comment: NORA to mLAD, NORA to pLAD 01/01/07 (7) DM2 (diabetes mellitus, type 2) Status: Chronic Qualifiers: Diabetes mellitus retirement insulin use: with retirement use Diabetes mellitus complication status: with other specified complication Qualified Code(s): E11.69 - Type 2 diabetes mellitus with other specified complication; 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 (8) Hx of coronary artery disease Status: Chronic (9) COPD with acute exacerbation Status: Chronic History of Present Illness Date of Admission: 12/21/19 Chief Complaint: Malaise, Fatigue, Fever, Cough, Dyspnea The patient is a 59 y/o F w/ PMHx: Tobacco use, Chronic COPD, Chronic back pain, HTN, HLD, Hx NV, Diabetes mellitus type II, CAD s/p PCI mLAD, pLAD, Anxiety and Depression who presents to the [facility] ED on 12/21/19 with ongoing general malaise, fatigue, fever, cough, arthralgia, myalgia with dyspnea and pleuritic chest discomfort, worse with coughing as well as nausea with occasional emesis, generalized 2-4/10 throbbing headache, poor oral intake tolerance and occasional loose stool. Work-up in the ED included T103.1, heart rate 105, BP 142/71, respiratory rate 16, 97% on room air, CBC with WC 9.8, hemoglobin 15.1, platelet 215 with left shift, CMP with BUN/creatinine 13/1.15, glucose 115, lactic acid 1.1, troponin less than 0.015, urinalysis not market appearing, rapid influenza negative, blood culture x2 pending per ED, CT brain with no acute intracranial findings, chest x-ray with no acute cardiopulmonary findings, EKG was sinus rhythm with no acute evidence of ischemia with nonspecific changes. In the ED patient ministered normal saline, Tamiflu, Tylenol regimen. Past Medical History Past Medical History (Chronic Problems): Chronic Problems (Last Reviewed 12/10/19 @ 16:07 by Karen Christensen MD) Tobacco abuse (Chronic) History of NV (myocardial infarction) (Chronic) Hyperlipidemia (Chronic) Atherosclerosis of coronary artery of inupiat heart without angina pectoris (Chronic) Essential hypertension (Chronic) History of coronary artery stent placement (Chronic) NORA to mLAD, NORA to pLAD 01/01/07 DM2 (diabetes mellitus, type 2) (Chronic) Hx of coronary artery disease (Chronic) COPD with acute exacerbation (Chronic) Medical History: Medical History (Last Reviewed 12/10/19 @ 16:07 by Karen Christensen MD) History of NV (myocardial infarction) (Chronic) I25.2 Hyperlipidemia (Chronic) E78.5 Atherosclerosis of coronary artery of inupiat heart without angina pectoris (Chronic) I25.10 Essential hypertension (Chronic) I10 Shortness of breath (Acute) R06.02 DM2 (diabetes mellitus, type 2) (Chronic) E11.9 Hx of coronary artery disease (Chronic) Z86.79 COPD with acute exacerbation (Chronic) J44.1 Chest pain R07.9 Back pain M54.9 Chronic back pain greater than 3 months duration M54.9, G89.29 Difficulty balancing R29.818 Knee pain M25.569 Limb weakness R29.898 Muscle spasm of back M62.830 Neck pain M54.2 Strain of latissimus dorsi muscle S29.012A Cellulitis of right ankle (Resolved) L03.115 Diarrhea R19.7 Right flank pain (Resolved) R10.9 Right second toe ulcer (Resolved) L97.519 Right upper quadrant abdominal pain (Resolved) R10.11 Severe headache R51 Allergies fluoxetine HCl [From ApplyMapzac] Allergy (Verified 12/21/19 17:26) Unknown jittery, difficulty breathing panic attack Home Medications: Ambulatory Orders Medication Instructions Recorded Clopidogrel Bisulfate [Plavix] 75 mg PO DAILY 04/28/14 Escitalopram Oxalate [Lexapro] 10 mg PO DAILY 04/28/14 Metoprolol Tartrate [Lopressor 50 mg PO BID 04/28/14 (beta jihan)] Trazodone HCl 300 mg PO QHS 04/28/14 Gabapentin [Neurontin] 300 mg PO TID 02/25/17 Isosorbide Mononitrate [Imdur] 30 mg PO DAILY #7 tab 07/16/17 insulin aspart U-100 100 unit/mL 25 unit SC QAC ml 12/10/19 (3 mL) subcutaneous pen insulin degludec 100 unit/mL (3 120 unit SC BID ml 12/10/19 mL) subcutaneous pen nitroglycerin 0.4 mg sublingual 0.4 mg SUBLINGUAL Q5-15M PRN 12/10/19 tablet Surgical History: Surgical History (Last Reviewed 12/10/19 @ 16:07 by Karen Christensen MD) History of coronary artery stent placement (Chronic) Z95.5 NORA to mLAD, NORA to pLAD 01/01/07 History of lumbar fusion Z98.890 History of arthroscopic knee surgery Z98.890 X2 right, X1 left History of section Z98.891 History of cholecystectomy Z90.49 History of hysterectomy Z90.710 History of open reduction and internal fixation (ORIF) procedure Z98.890 Right foot History of shoulder surgery Z98.890 Right X2 Surgical History: appendectomy, cholecystectomy, - - spinal discectomy/hardware, coronary artery stent, ulnar nerve surgery, arthroscopy of the knees, Psychiatric History: Anxiety, Depression 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 Smoking Status: Current every day smoker - 2-5 cigarettes daily. Tobacco Use: Cigarettes Alcohol: None Drugs: None - *Family History Paternal Family History: Family History (Last Reviewed 12/10/19 @ 16:07 by Karen Christensen MD) Mother Diabetes Hypertension History Items: COPD, Heart Disease, Hypertension Maternal Family History: Family History (Last Reviewed 12/10/19 @ 16:07 by Karen Christensen MD) Mother Diabetes Hypertension History Items: Heart Disease, Hypertension Review of Systems Constitutional: Reports: Anorexia, Malaise, Weakness, Fatigue. Denies: Chills, Fever, Weight Change HEENT: Reports: Head Aches, Nasal Congestion, Sinus Congestion, Sore Throat. Denies: Sinus Drainage Cardiovascular: Denies: Chest Pain, Palpitations Respiratory: Reports: Cough, Pleuritic Pain, Shortness of Breath, Shortness of breath upon exertion, Sputum production. Denies: Shortness of breath at rest, Wheezing Gastrointestinal: Reports: Diarrhea, Nausea, Vomiting. Denies: Abdominal Pain Genitourinary: Denies: Dysuria Musculoskeletal: Reports: Back Pain, Joint Pain, Muscle pain. Denies: Joint Tenderness Skin: Denies: Rash, Wounds Neurological: Denies: Numbness, Tingling, Focal weakness Psychiatric: Reports: Anxiety, Depression. Denies: Homicidal Ideations, Suicidal Ideations Hematologic/ Lymphatic: Denies: Easy Bruising, Easy Bleeding VTE Information - Inpt Only VTE Present on Admission: No VTE Mechan Device Prophylaxis: SCD's VTE Pharm Prophylaxis ordered?: Yes Patient Problems: Active and Suspected Problems (Last Reviewed 12/10/19 @ 16:07 by Karen Christensen MD) Acute viral syndrome (Acute) Subjective: Seated upright in the ED bed, fatigued and ill appearing. Objective: Physical Examination: General: awake, alert, oriented x 3 and cooperative, seated upright in the ED bed in no apparent distress but fatigued and ill appearing. Skin: normal color, turgor, no icterus, cyanosis. HEENT: AT/NC, EOMI, PERRLA, dry MM, no carotid bruits or JVD noted. Lungs: Diminished BS BL, > bases, no distress, no wheezing, no obvious rales, ronchi or wheezing. Heart: Mildly tachycardia with regular rhythm; no gallop, rub audible. Abdomen: soft, obese, NTTP, ND, normal BS, no HSM. Extremities: no cyanosis, clubbing, or edema. Neurological: patient awake, alert, oriented x 3; cognitive function remains baseline intact; pupils equally reactive to light and accomodation; cranial nerves II-XII grossly normal, moving all 4 extremities, no focal deficits, strength moderately globally decreased secondary to acute presentation. Psychiatric: affect appears fatigued, no acute evidence of depressive or anxiety feelings. - Physical Exam Vitals/I&O's: Vital Signs Temp Pulse Resp BP Pulse Ox 103.1 F H 85 16 125/73 H 94 12/21/19 17:23 12/21/19 19:23 12/21/19 19:23 12/21/19 19:23 12/21/19 19:23 Oxygen Delivery Method Room Air Weight: 240 lb 15.444 oz Body Mass Index (BMI) 35.6 Finger Stick Blood Glucose 323 Intake and Output for Last 24 Hours 12/19/19 12/20/19 12/21/19 23:59 23:59 23:59 Intake Total 500 / 500 Balance 500 / 500 Microbiology Past 72 Hours 12/21/19 18:00 Mucosa - Nose Influenza Types A,B Direct FA (MINI) - Final Laboratory Results 12/21/19 17:30: WBC 9.8, RBC 5.41 H, Hgb 15.1 H, Hct 46.0, MCV 85.0, MCH 27.9, MCHC 32.8, RDW Std Deviation 46.9 H, RDW Coeff of Jalil 15.4 H, Plt Count 215, MPV 9.8, Immature Gran % (Auto) 0.400, Neut % (Auto) 80.8 H, Lymph % (Auto) 13.4 L, [place] % (Auto) 5.1, Eos % (Auto) 0.1, Baso % (Auto) 0.2, Absolute Neuts (auto) 7.9 H, Absolute Lymphs (auto) 1.31, Nucleated RBC % 0 12/21/19 17:30: Sodium 137, Potassium 4.0, Chloride 103, Carbon Dioxide 27.0, Anion Gap 7, BUN 13, Creatinine 1.15 H, Estim Creat Clear Calc 54.37, Est GFR (MDRD) Af Amer 62, Est GFR (MDRD) Non-Af 51 L, BUN/Creatinine Ratio 11.3, Glucose 115 H, Calcium 8.6, Total Bilirubin 0.30, AST 13 L, ALT 22, Alkaline Phosphatase 84, Troponin I < 0.015, Total Protein 7.8, Albumin 3.2, Globulin 4.6 H, Albumin/Globulin Ratio 0.7 L 12/21/19 17:30: Lactic Acid 1.1 12/21/19 18:10: Urine Color Yellow, Urine Clarity Clear, Urine pH 6.0, Ur Specific [place] 1.010, Urine Protein Negative, Urine Glucose (UA) Normal, Urine Ketones 5 H, Urine Occult Blood 25 H, Urine Nitrite Negative, Urine Bilirubin Negative, Urine Urobilinogen Normal, Ur Leukocyte Esterase 25 H, Urine RBC 0-5 SEEN, Urine WBC 0-5 SEEN, Ur Squamous Epith Cells 0-5 SEEN, Urine Bacteria 0 SEEN, Urine Mucus 0 SEEN Assessment/Plan All Active Problems (Last Reviewed 12/10/19 @ 16:07 by Karen Christensen MD) Acute viral syndrome (Acute) Preoperative cardiovascular examination (Acute) Dizziness (Acute) Shortness of breath (Acute) Cellulitis of right ankle (Resolved) Right flank pain (Resolved) Right second toe ulcer (Resolved) Right upper quadrant abdominal pain (Resolved) The patient is a 59 y/o F w/ PMHx: Tobacco use, Chronic COPD, Chronic back pain, HTN, HLD, Hx NV, Diabetes mellitus type II, CAD s/p PCI mLAD, pLAD, Anxiety and Depression who presents to the [facility] ED on 12/21/19 with ongoing general malaise, fatigue, fever, cough, arthralgia, myalgia with dyspnea and pleuritic chest discomfort, worse with coughing as well as nausea with occasional emesis, generalized 2-4/10 throbbing headache, poor oral intake tolerance and occasional loose stool. 1. General Malaise, Cough, Fever, General Debility secondary to Suspected Acute Influenza Viral Syndrome: Work-up in the ED included T103.1, heart rate 105, BP 142/71, respiratory rate 16, 97% on room air, CBC with WC 9.8, hemoglobin 15.1, platelet 215 with left shift, CMP with BUN/creatinine 13/1.15, glucose 115, lactic acid 1.1, troponin less than 0.015, urinalysis not market appearing, rapid influenza negative, blood culture x2 pending per ED, CT brain with no acute intracranial findings, chest x-ray with no acute cardiopulmonary findings, EKG was sinus rhythm with no acute evidence of ischemia with nonspecific changes. Maintain on Tamiflu pending respiratory viral panel, rapid negative but high suspicion. Will admit to [facility], maintain on oxygen with wean as tolerated, continue ATC duonebs, PRN albuterol, HOB, IS parameters, sputum cx requested, pending Bld cx x 2 from ED. Given no obvious wheezing, deferred any steroid initiation. 2. Chronic COPD: Will maintain on oxygen with wean as tolerated to room air, continue ATC duonebs, PRN albuterol, HOB, IS parameters. 3. Diabetes mellitus type II w/ neuropathy: Will continue home insulin regimen, ADA diet, accu checks w/ ISS. 4. Hypertension: Continue home regimen including isosorbide, metoprolol with hold parameters, PRN hydralazine. 5. Hyperlipidemia: Not on regimen, defer to outpatient. 6. CAD, Hx NV: Status post PCI to the mid LAD and proximal LAD, continue Plavix, metoprolol, not on statin therapy nor ANDREA inhibitor or ARB. 7. Obesity: Weight loss and lifestyle changes encouraged. 8. Anxiety and depression: We will continue patient home Lexapro regimen as well as nightly trazodone. 9. Tobacco Abuse: Encouraged cessation, inpatient consultation per RT, NR if desired. 10. DVT prophylaxis: SCDs, Lovenox. Code Visit OBSV E&M: [id number] Initial observation care L3
[2019-12-21] MEDS: Albuterol 2.5 MG/3 ML VIAL.NEB. INHALATION (21:46)
[2019-12-21] MEDS: Metoprolol Tartrate 50 MG Tablet PO (22:14)
[2019-12-21] MEDS: 0.9% Normal Saline 1,000 ML 125 ML IV (22:14)
[2019-12-21] MEDS: Oseltamivir Phosphate 75 MG Capsule PO (22:14)
[2019-12-21] MEDS: traZODone 100 MG Tablet 300 MG PO (22:14)
[2019-12-21] MEDS: Famotidine 20 MG Tablet PO (22:15)
[2019-12-21] MEDS: Gabapentin 300 MG Capsule PO (22:15)
[2019-12-21 22:26] LABS: Bedside Glucose 139 mg/dL (70-110)
[2019-12-22] VITALS (13 sets, daily range): BP systolic 101–137; BP diastolic 50–74; PULSE 73–89; RESP 16–18; TEMP 36.9–39.3; O2SAT 94–98
[2019-12-22] MEDS: Ondansetron 4 MG/2 ML Vial IV (02:05)
[2019-12-22] MEDS: Acetaminophen 325 MG Tablet 650 MG PO ×3 (02:05→18:26)
[2019-12-22] MEDS: oxyCODONE 5 MG Tablet PO ×3 (02:05→18:26)
[2019-12-22] MEDS: guaiFENesin 10 ML UDC (200MG/10ML) 20 ML PO ×3 (02:05→18:27)
[2019-12-22] MEDS: Gabapentin 300 MG Capsule PO ×3 (05:05→21:21)
[2019-12-22] MEDS: Ipratropium/Albuterol Sulfate 3 ML AMPUL.NEB INHALATION ×3 (06:35→15:33)
[2019-12-22 06:43] LABS: Absolute Lymphocyte Count 1.38 X10^3/uL (0.83-4.51); Absolute Neutrophil Count 5.6 X10^3/uL (2.0-7.7); Basophil# 0.03 X10^3/uL; Basophil% 0.4 % (0-1); Eosinophils% 1.3 % (0-5); Hematocrit 39.7 % (37-47); Hemoglobin 12.9 g/dL (12.0-15.0); Lymphocyte # 1.38 X10^3/ul (4.0); Lymphocyte % 18.4 % (19-41); Mean Corp Hgb Conc 32.5 g/dL (32-36); Mean Corpuscular Hgb 27.7 pg (27.0-32.0); Mean Corpuscular Volume 85.4 fL (81-99); Mean Platelet Vol. 9.9 fl (6.2-12.0); Monocyte# 0.38 X10^3/uL; Monocyte% 5.1 % (0-10); NRBC Flagged by Analyzer 0 % (0-5); Neutrophil # 5.57 X10^3/uL (2.7-7.7); Neutrophil % 74.5 % (47-70); Platelet Count 194 K/mm3 (150-450); RBC Distribution Width CV 15.4 % (11.6-14.6); RBC Distribution Width SD 47.9 fl (35.1-43.9); Red Blood Count 4.65 M/mm3 (4.2-5.4); White Blood Count 7.5 K/mm3 (4.4-11.0)
[2019-12-22] MEDS: 0.9% Normal Saline 1,000 ML 125 ML IV ×2 (06:54→19:47)
[2019-12-22 07:01] LABS: Anion Gap 6 (5-15); BUN 12 mg/dL (7-18); BUN/Creat Ratio 12.6 RATIO (10-20); Calcium,Total 7.9 mg/dL (8.5-10.1); Chloride 106 mmol/L (98-107); Creatinine, Serum 0.95 mg/dL (0.55-1.02); EST Glomerular Filtration Rate 64 mL/min (>60); Est Glom Filt Rate - Afr Amer 77 mL/min (>60); Estimated Creatinine Clearance 65.81 ml/min; Glucose 113 mg/dL (74-106); Potassium 3.7 mmol/L (3.5-5.1); Sodium Level 138 mmol/L (136-145)
[2019-12-22 08:01] LABS: Bedside Glucose 109 mg/dL (70-110)
--- NOTE | 2019-12-22 09:00 | RAD_ITS ---
STUDY: X-RAY CHEST REASON FOR EXAM: Female, 59 years old. DYSPNEA, COUGH TECHNIQUE: PA and lateral views of the chest. COMPARISON: FINDINGS: Focal alveolar opacity in the lower right lung consistent with right lower lobe pneumonia or mass. Follow-up is recommended to document resolution to exclude a mass. There is no demonstrated pleural abnormality. Normal size heart. Normal mediastinum and timothy. Normal visualized pulmonary arteries. Normal visualized aortic arch and descending thoracic aorta. Normal visualized thoracic spine. Normal visualized ribs, clavicles, and shoulders. There is no demonstrated abnormality of the visualized soft tissue structures of the upper abdomen. RAD/Chest PA and Lateral IMPRESSION: Right lower lobe pneumonia or mass. Follow-up is recommended to document resolution. Electronically Signed: Phoenix Holguin MD at 15:12 EST Tel , Service support ,
[2019-12-22] MEDS: Escitalopram Oxalate 10 MG Tablet PO (10:17)
[2019-12-22] MEDS: Famotidine 20 MG Tablet PO ×2 (10:17→21:21)
[2019-12-22] MEDS: Isosorbide Mononitrate 30 MG Tablet PO (10:17)
[2019-12-22] MEDS: Oseltamivir Phosphate 75 MG Capsule PO (10:17)
[2019-12-22] MEDS: Clopidogrel Bisulfate 75 MG Tablet PO (10:17)
[2019-12-22] MEDS: Metoprolol Tartrate 50 MG Tablet PO ×2 (10:17→21:21)
[2019-12-22] MEDS: Enoxaparin 40 MG/0.4 ML Syringe SC (10:18)
--- NOTE | 2019-12-22 10:35 | PN_ITS ---
Patient Problems: Active and Suspected Problems (Last Reviewed 12/10/19 @ 16:07 by Karen Christensen MD) Acute viral syndrome (Acute) Influenza (Acute) Subjective: Patient seen and examined. She was admitted with a complaint of fever, cough and shortness of breath as well as generalized malaise. She met SIRS criteria though there was no clear focus of infection as chest x-ray showed no acute cardiopulmonary findings. She has been managed for presumptive flu. She is on Tamiflu. Patient seen this morning. She says she was feeling a bit better but still felt horrible. She still had chills and shortness of breath that improved. She denied any chest pain or palpitations or dizziness, diarrhea vomiting. She did have nausea but denied any fever. Labs and vitals reviewed. He has remained hemodynamically stable and WBC 7.5 this morning. Respiratory rate was 18 and pulse rate was 86 and she was afebrile. Vitals/I&O's: Vital Signs Temp Pulse Resp BP Pulse Ox 98.5 F 86 18 125/74 H 98 12/22/19 10:14 12/22/19 10:17 12/22/19 10:14 12/22/19 10:14 12/22/19 10:14 Oxygen Delivery Method Room Air Weight: 233 lb 11.04 oz Body Mass Index (BMI) 34.4 Finger Stick Blood Glucose 323 Intake and Output for Last 24 Hours 12/20/19 12/21/19 12/22/19 23:59 23:59 23:59 Intake Total 1366.25 / 1366.25 1256.25 / 1256.25 Balance 1366.25 / 1366.25 1256.25 / 1256.25 General: Alert, Oriented x3, Cooperative, Lethargic HEENT: Atraumatic, PERRLA, EOMI, Normocephalic Oral: Dry Mucosa Neck: Supple, No JVD, Negative Carotid Bruits Lungs: Clear to auscultation, Normal air movement, No rhonchi, No wheeze, No rales Cardiovascular: Regular rate, Regular Rhythm, Normal S1, Normal S2, No murmurs Abdomen: Bowel Sounds Present, Soft, Non Tender, Non-Distended, No Hepato- splenomegaly Extremities: No clubbing, No cyanosis, No edema, Capillary Refill Less than 3 Seconds Skin: No rashes, No breakdown Musculoskeletal: No Tenderness to Palpation of Joints or Extremities Lymphatic: No Cervical, Supraclavicular, or Inguinal Adenopathy Neurological: Cranial nerves II-XII grossly intact, Neuro grossly intact, Motor Exam 5/5 strength throughout Psych/Mental Status: Normal Affect, Appropriate, Alert and oriented to time, place, person, mood and affect Microbiology Past 72 Hours 12/21/19 18:00 Mucosa - Nasopharyngeal Respiratory Panel (PCR) - Final 12/21/19 18:00 Mucosa - Nose Influenza Types A,B Direct FA (MINI) - Final Laboratory Results 12/21/19 17:30: WBC 9.8, RBC 5.41 H, Hgb 15.1 H, Hct 46.0, MCV 85.0, MCH 27.9, MCHC 32.8, RDW Std Deviation 46.9 H, RDW Coeff of Jalil 15.4 H, Plt Count 215, MPV 9.8, Immature Gran % (Auto) 0.400, Neut % (Auto) 80.8 H, Lymph % (Auto) 13.4 L, [place] % (Auto) 5.1, Eos % (Auto) 0.1, Baso % (Auto) 0.2, Absolute Neuts (auto) 7.9 H, Absolute Lymphs (auto) 1.31, Nucleated RBC % 0 12/21/19 17:30: Sodium 137, Potassium 4.0, Chloride 103, Carbon Dioxide 27.0, Anion Gap 7, BUN 13, Creatinine 1.15 H, Estim Creat Clear Calc 54.37, Est GFR (MDRD) Af Amer 62, Est GFR (MDRD) Non-Af 51 L, BUN/Creatinine Ratio 11.3, Glucose 115 H, Calcium 8.6, Total Bilirubin 0.30, AST 13 L, ALT 22, Alkaline Phosphatase 84, Troponin I < 0.015, Total Protein 7.8, Albumin 3.2, Globulin 4.6 H, Albumin/Globulin Ratio 0.7 L 12/21/19 17:30: Lactic Acid 1.1 12/21/19 18:10: Urine Color Yellow, Urine Clarity Clear, Urine pH 6.0, Ur Specific [place] 1.010, Urine Protein Negative, Urine Glucose (UA) Normal, Urine Ketones 5 H, Urine Occult Blood 25 H, Urine Nitrite Negative, Urine Bilirubin Negative, Urine Urobilinogen Normal, Ur Leukocyte Esterase 25 H, Urine RBC 0-5 SEEN, Urine WBC 0-5 SEEN, Ur Squamous Epith Cells 0-5 SEEN, Urine Bacteria 0 SEEN, Urine Mucus 0 SEEN 12/21/19 22:08: POC Glucose 139 H 12/22/19 05:40: WBC 7.5, RBC 4.65, Hgb 12.9, Hct 39.7, MCV 85.4, MCH 27.7, MCHC 32.5, RDW Std Deviation 47.9 H, RDW Coeff of Jalil 15.4 H, Plt Count 194, MPV 9.9, Immature Gran % (Auto) 0.300, Neut % (Auto) 74.5 H, Lymph % (Auto) 18.4 L, [place] % (Auto) 5.1, Eos % (Auto) 1.3, Baso % (Auto) 0.4, Absolute Neuts (auto) 5.6, Absolute Lymphs (auto) 1.38, Nucleated RBC % 0 12/22/19 05:40: Sodium 138, Potassium 3.7, Chloride 106, Carbon Dioxide 26.0, Anion Gap 6, BUN 12, Creatinine 0.95, Estim Creat Clear Calc 65.81, Est GFR (MDRD) Af Amer 77, Est GFR (MDRD) Non-Af 64, BUN/Creatinine Ratio 12.6, Glucose 113 H, Calcium 7.9 L 12/22/19 07:41: POC Glucose [address] 12/21/19 17:40 IMPRESSION: Normal unenhanced CT scan of the brain. Electronically Signed: Phoenix Holguin MD at 18:34 EST Tel , Service support , Current Medications Acetaminophen (Tylenol) 650 mg PO Q6H PRN PRN PRN Reason: Pain Score 1-10/Temp > 100.7 F Last Admin: 12/22/19 02:05 Dose: 650 mg Documented by: Al Hydroxide/Mg Hydroxide (Mylanta Ii) 30 ml PO Q6H PRN PRN PRN Reason: Gastric Burning Albuterol Sulfate (Ventolin Aerosols) 2.5 mg INHALATION Q2H PRN PRN PRN Reason: dyspnea, wheezing Last Admin: 12/21/19 21:46 Dose: 2.5 mg Documented by: Albuterol/Ipratropium (Duoneb) 3 ml INHALATION Q4HWA.RT [facility] Last Admin: 12/22/19 06:35 Dose: 3 ml Documented by: Clopidogrel Bisulfate (Plavix) 75 mg PO DAILY [facility] Last Admin: 12/22/19 10:17 Dose: 75 mg Documented by: Enoxaparin Sodium (Lovenox) 40 mg SC DAILY [facility] Last Admin: 12/22/19 10:18 Dose: 40 mg Documented by: Escitalopram Oxalate (Lexapro) 10 mg PO DAILY [facility] Last Admin: 12/22/19 10:17 Dose: 10 mg Documented by: Famotidine (Pepcid) 20 mg PO BID [facility] Last Admin: 12/22/19 10:17 Dose: 20 mg Documented by: Gabapentin (Neurontin) 300 mg PO TID [facility] Last Admin: 12/22/19 05:05 Dose: 300 mg Documented by: Glucagon () 1 mg IM .X1 PRN PRN Reason: Hypoglycemia Guaifenesin (Robitussin) 20 ml PO Q4H PRN PRN PRN Reason: COUGH Last Admin: 12/22/19 02:05 Dose: 20 ml Documented by: Sodium Chloride () 1,000 mls @ 125 mls/hr IV .Q8H [facility] Last Infusion: 12/22/19 10:23 Dose: 125 mls/hr Documented by: Dextrose (Dextrose 10%-Water) 250 mls @ 999 mls/hr IV .Q16M PRN; Protocol PRN Reason: HYPOGLYCEMIA Sodium Chloride () 250 mls @ 15 mls/hr IV .[id number] PRN PRN Reason: Saline Flush Sodium Chloride () 250 mls @ 15 mls/hr IV .[id number] PRN PRN Reason: Additional IVPB Infusion Insulin Glargine (Lantus (Bkc)) 120 units SC BID [facility] Last Admin: 12/22/19 10:17 Dose: 120 units Documented by: Insulin Human Lispro (Humalog Kwikpen (Bkc)) 25 unit SC TIDAC [facility] Last Admin: 12/22/19 10:16 Dose: Not Given Documented by: Insulin Human Lispro (Humalog Kwikpen (Bkc)) 0 unit SC ACHS [facility]; Protocol Last Admin: 12/22/19 09:16 Dose: Not Given Documented by: Isosorbide Mononitrate (Imdur) 30 mg PO DAILY [facility] Last Admin: 12/22/19 10:17 Dose: 30 mg Documented by: Magnesium Hydroxide (Milk Of Magnesia) 30 ml PO DAILY PRN PRN PRN Reason: Constipation Melatonin (Melatonin) 3 mg PO QHS PRN PRN PRN Reason: INSOMNIA Metoprolol Tartrate (Lopressor (Beta Patrick)) 50 mg PO BID [facility] Last Admin: 12/22/19 10:17 Dose: 50 mg Documented by: Nitroglycerin (Nitrostat) 0.4 mg SUBLINGUAL Q5M PRN PRN Reason: CARDIAC/CHEST PAIN Ondansetron HCl (Zofran) 4 mg IV Q8H PRN PRN PRN Reason: NAUSEA/VOMITING Last Admin: 12/22/19 02:05 Dose: 4 mg Documented by: Oseltamivir Phosphate (Tamiflu) 75 mg PO BID [facility] Stop: 12/26/19 10:01 Last Admin: 12/22/19 10:17 Dose: 75 mg Documented by: Oxycodone HCl (Oxyir) 5 mg PO Q4H PRN PRN PRN Reason: Pain Score 4-5/10 Last Admin: 12/22/19 02:05 Dose: 5 mg Documented by: Prochlorperazine Edisylate (Compazine Iv) 5 mg IV Q4H PRN PRN PRN Reason: Breakthrough nausea/vomiting Psyllium Hydrophilic Mucilloid (Metamucil) 1 packet PO DAILY PRN PRN PRN Reason: Constipation Senna/Docusate Sodium (Senokot-S, Suzette-Colace) 2 tablet PO BID PRN PRN PRN Reason: Constipation Sodium Chloride () 10 - 40 ml IV UD PRN PRN Reason: SALINE FLUSH Throat Lozenges (Cepacol Sore Throat Lozenge) 1 lozenge MUCOUS MEM Q2H PRN PRN PRN Reason: SORE THROAT Trazodone HCl (Desyrel) 300 mg PO QHS [facility] Last Admin: 12/21/19 22:14 Dose: 300 mg Documented by: STROKE Vital Signs/Narrative: Vital Signs Temp Pulse Resp BP Pulse Ox 12/22/19 10:17 86 12/22/19 10:14 98.5 F 86 18 125/74 H 98 Medical Necessity - Tobacco Use Smoking Status: Current every day smoker Tobacco Use: Cigarettes Assessment/Plan All Active Problems (Last Reviewed 12/10/19 @ 16:07 by Karen Christensen MD) Acute viral syndrome (Acute) Influenza (Acute) Preoperative cardiovascular examination (Acute) Dizziness (Acute) Shortness of breath (Acute) Cellulitis of right ankle (Resolved) Right flank pain (Resolved) Right second toe ulcer (Resolved) Right upper quadrant abdominal pain (Resolved) 1.Probable acute influenza * patient afebrile today, not tachypneic or tachycardic * she has no leucocytosis * respiratory panel pending * on tamifllu for presumptive influenza * continue breathing treatments and duonebs * sputum culture pending * 2. 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 Theron ACHS. On Lantus 120 units twice daily and lispro 25 units 3 times daily with meals. 4. Hypertension: On metoprolol and Imdur. 5. CAD status post stents: On metoprolol and Plavix. Not on ANDREA inhibitor or ARB or statin. It is unclear why as she has no listed allergies. 6. Anxiety and depression: On Lexapro as well as trazodone nightly. DVT prophylaxis: Lovenox Code Visit Inpatient E&M: 79471 Subs Hosp L2
[2019-12-22] MEDS: Insulin Lispro 100 UNIT/ML INSULN.PEN 25 UNIT SC (12:02)
[2019-12-22] MEDS: Insulin Lispro 100 UNIT/ML INSULN.PEN SC (12:03)
[2019-12-22 12:16] LABS: Bedside Glucose 194 mg/dL (70-110)
[2019-12-22] MEDS: 0.9% Saline Lock 10 ML Syringe IV (15:13)
[2019-12-22 17:05] LABS: Bedside Glucose 85 mg/dL (70-110)
[2019-12-22] MEDS: traZODone 100 MG Tablet 300 MG PO (21:21)
[2019-12-22] MEDS: tiZANidine HCl 2 MG Tablet PO (21:21)
[2019-12-22 21:30] LABS: Bedside Glucose 85 mg/dL (70-110)
[2019-12-23] VITALS (12 sets, daily range): BP systolic 88–150; BP diastolic 37–83; PULSE 71–95; RESP 16–19; TEMP 37.3–38.7; O2SAT 92–97
[2019-12-23] MEDS: guaiFENesin 10 ML UDC (200MG/10ML) 20 ML PO (01:38)
[2019-12-23] MEDS: oxyCODONE 5 MG Tablet PO ×5 (01:39→21:36)
[2019-12-23] MEDS: Acetaminophen 325 MG Tablet 650 MG PO ×2 (01:39→14:09)
[2019-12-23] MEDS: 0.9% Normal Saline 1,000 ML 999 ML IV (04:13)
[2019-12-23] MEDS: 0.9% Normal Saline 1,000 ML 125 ML IV ×2 (06:01→14:09)
[2019-12-23] MEDS: Gabapentin 300 MG Capsule PO ×3 (06:02→21:36)
[2019-12-23 06:25] LABS: Bedside Glucose 122 mg/dL (70-110)
[2019-12-23 06:32] LABS: Anion Gap 4 (5-15); BUN 12 mg/dL (7-18); BUN/Creat Ratio 12.9 RATIO (10-20); Calcium,Total 7.3 mg/dL (8.5-10.1); Chloride 110 mmol/L (98-107); Creatinine, Serum 0.93 mg/dL (0.55-1.02); EST Glomerular Filtration Rate 65 mL/min (>60); Est Glom Filt Rate - Afr Amer 79 mL/min (>60); Estimated Creatinine Clearance 67.23 ml/min; Glucose 80 mg/dL (74-106); Potassium 3.7 mmol/L (3.5-5.1); Sodium Level 139 mmol/L (136-145)
[2019-12-23 06:56] LABS: Absolute Lymphocyte Count 1.09 X10^3/uL (0.83-4.51); Absolute Neutrophil Count 4.8 X10^3/uL (2.0-7.7); Basophil# 0.02 X10^3/uL; Basophil% 0.3 % (0-1); Eosinophil# 0.06 X10^3/uL; Eosinophils% 0.9 % (0-5); Hematocrit 34.9 % (37-47); Hemoglobin 11.3 g/dL (12.0-15.0); Lymphocyte # 1.09 X10^3/ul (4.0); Lymphocyte % 17.1 % (19-41); Mean Corp Hgb Conc 32.4 g/dL (32-36); Mean Corpuscular Hgb 27.8 pg (27.0-32.0); Mean Corpuscular Volume 85.7 fL (81-99); Mean Platelet Vol. 9.8 fl (6.2-12.0); Monocyte# 0.44 X10^3/uL; Monocyte% 6.9 % (0-10); NRBC Flagged by Analyzer 0 % (0-5); Neutrophil # 4.76 X10^3/uL (2.7-7.7); Neutrophil % 74.6 % (47-70); Platelet Count 173 K/mm3 (150-450); RBC Distribution Width CV 15.3 % (11.6-14.6); RBC Distribution Width SD 48.4 fl (35.1-43.9); Red Blood Count 4.07 M/mm3 (4.2-5.4); White Blood Count 6.4 K/mm3 (4.4-11.0)
[2019-12-23] MEDS: Ipratropium/Albuterol Sulfate 3 ML AMPUL.NEB INHALATION (07:15)
[2019-12-23 08:20] LABS: Bedside Glucose 89 mg/dL (70-110)
[2019-12-23] MEDS: Metoprolol Tartrate 50 MG Tablet PO ×2 (09:56→21:35)
[2019-12-23] MEDS: Isosorbide Mononitrate 30 MG Tablet PO (09:57)
[2019-12-23] MEDS: Clopidogrel Bisulfate 75 MG Tablet PO (09:57)
[2019-12-23] MEDS: Escitalopram Oxalate 10 MG Tablet PO (09:57)
[2019-12-23] MEDS: Famotidine 20 MG Tablet PO ×2 (09:57→21:36)
[2019-12-23] MEDS: Enoxaparin 40 MG/0.4 ML Syringe SC (09:57)
--- NOTE | 2019-12-23 10:24 | PCM.PN.HOSP ---
Patient Problems: Active and Suspected Problems (Last Reviewed 12/10/19 @ 16:07 by Karen Christensen MD) Acute viral syndrome (Acute) Influenza (Acute) Reason for Visit: Follow-up on pneumonia Subjective: Patient was seen and examined. Complains of feeling tired. Has chest pain, described as dull/heavy worse with coughing. Denies any fever or chills. No other acute events overnight. EKG done this morning shows no acute ST-T changes Objective: Physical exam: Vitals/I&O's: Vital Signs Temp Pulse Resp BP Pulse Ox 99.5 F H 86 16 128/71 H 97 12/23/19 09:33 12/23/19 09:56 12/23/19 09:33 12/23/19 09:33 12/23/19 09:33 Oxygen Delivery Method Room Air Weight: 106 kg Body Mass Index (BMI) 34.4 Finger Stick Blood Glucose 323 Intake and Output for Last 24 Hours 12/21/19 12/22/19 12/23/19 23:59 23:59 23:59 Intake Total 1366.25 / 1366.25 / 2248.75 / 2248.75 Output Total 300 / 300 Balance 1366.25 / 1366.25 / 1948.75 / 1948.75 General: Alert, Oriented x3, Cooperative, - - looks fatigued HEENT: Atraumatic, PERRLA, EOMI, Normocephalic Oral: Moist Mucosa Neck: Supple Lungs: Normal air movement, Diminished - all over lung hall Cardiovascular: Regular rate, Regular Rhythm, Normal S1, Normal S2, No murmurs Abdomen: Bowel Sounds Present, Soft, Non Tender, Non-Distended, No Hepato-splenomegaly Extremities: No edema Skin: No rashes, No breakdown Musculoskeletal: No Tenderness to Palpation of Joints or Extremities Lymphatic: No Cervical, Supraclavicular, or Inguinal Adenopathy Neurological: Cranial nerves II-XII grossly intact, Neuro grossly intact Psych/Mental Status: Normal Affect, Appropriate Microbiology Past 72 Hours 12/23/19 01:33 Urine, Random Streptococcus pneumoniae Antigen (M - Final 12/23/19 01:33 Urine, Random Legionella Antigen - Final 12/22/19 01:53 Sputum, Expectorated/Coughed Gram Stain - Final 12/21/19 18:00 Mucosa - Nasopharyngeal Respiratory Panel (PCR) - Final 12/21/19 18:00 Mucosa - Nose Influenza Types A,B Direct FA (MINI) - Final Laboratory Results 12/22/19 12:01: POC Glucose 194 H 12/22/19 17:00: POC Glucose 85 12/22/19 21:16: POC Glucose 85 12/23/19 03:21: POC Glucose 122 H 12/23/19 05:35: WBC 6.4, RBC 4.07 L, Hgb 11.3 L, Hct 34.9 L, MCV 85.7, MCH 27.8, MCHC 32.4, RDW Std Deviation 48.4 H, RDW Coeff of Jalil 15.3 H, Plt Count 173, MPV 9.8, Immature Gran % (Auto) 0.200, Neut % (Auto) 74.6 H, Lymph % (Auto) 17.1 L, [place] % (Auto) 6.9, Eos % (Auto) 0.9, Baso % (Auto) 0.3, Absolute Neuts (auto) 4.8, Absolute Lymphs (auto) 1.09, Nucleated RBC % 0 12/23/19 05:35: Sodium 139, Potassium 3.7, Chloride 110 H, Carbon Dioxide 25.0, Anion Gap 4 L, BUN 12, Creatinine 0.93, Estim Creat Clear Calc 67.23, Est GFR (MDRD) Af Amer 79, Est GFR (MDRD) Non-Af 65, BUN/Creatinine Ratio 12.9, Glucose 80, Calcium 7.3 L 12/23/19 08:15: POC Glucose 89 Current Medications Acetaminophen (Tylenol) 650 mg PO Q6H PRN PRN PRN Reason: Pain Score 1-10/Temp > 100.7 F Last Admin: 12/23/19 01:39 Dose: 650 mg Documented by: Al Hydroxide/Mg Hydroxide (Mylanta Ii) 30 ml PO Q6H PRN PRN PRN Reason: Gastric Burning Albuterol Sulfate (Ventolin Aerosols) 2.5 mg INHALATION Q2H PRN PRN PRN Reason: dyspnea, wheezing Last Admin: 12/21/19 21:46 Dose: 2.5 mg Documented by: Albuterol/Ipratropium (Duoneb) 3 ml INHALATION Q4HWA.RT [facility] Last Admin: 12/23/19 07:15 Dose: 3 ml Documented by: Clopidogrel Bisulfate (Plavix) 75 mg PO DAILY [facility] Last Admin: 12/23/19 09:57 Dose: 75 mg Documented by: Enoxaparin Sodium (Lovenox) 40 mg SC DAILY [facility] Last Admin: 12/23/19 09:57 Dose: 40 mg Documented by: Escitalopram Oxalate (Lexapro) 10 mg PO DAILY [facility] Last Admin: 12/23/19 09:57 Dose: 10 mg Documented by: Famotidine (Pepcid) 20 mg PO BID [facility] Last Admin: 12/23/19 09:57 Dose: 20 mg Documented by: Gabapentin (Neurontin) 300 mg PO TID [facility]PL[facility] Last Admin: 12/23/19 06:02 Dose: 300 mg Documented by: Glucagon () 1 mg IM .X1 PRN PRN Reason: Hypoglycemia Guaifenesin (Robitussin) 20 ml PO Q4H PRN PRN PRN Reason: COUGH Last Admin: 12/23/19 01:38 Dose: 20 ml Documented by: Sodium Chloride () 1,000 mls @ 125 mls/hr IV .Q8H [facility]PLACED [facility] Last Admin: 12/23/19 06:01 Dose: 125 mls/hr Documented by: Dextrose (Dextrose 10%-Water) 250 mls @ 999 mls/hr IV .Q16M PRN; Protocol PRN Reason: HYPOGLYCEMIA Sodium Chloride () 250 mls @ 15 mls/hr IV .[id number] PRN PRN Reason: Saline Flush Sodium Chloride () 250 mls @ 15 mls/hr IV .[id number] PRN PRN Reason: Additional IVPB Infusion Ceftriaxone Sodium 2 gm/ (Sodium Chloride) 50 mls @ 100 mls/hr IV QHS [facility]PLACED [facility] Last Infusion: 12/23/19 01:58 Dose: Infused Documented by: Azithromycin 500 mg/ Dextrose 255 mls @ 250 mls/hr IV QHS REPLACED BY [facility] Last Infusion: 12/23/19 03:03 Dose: Infused Documented by: Insulin Glargine (Lantus ([facility])) 120 units SC BID [facility] Last Admin: 12/23/19 09:54 Dose: Not Given Documented by: Insulin Human Lispro (Humalog Kwikpen ([facility])) 25 unit SC TIDAC REPLACED BY [facility] Last Admin: 12/23/19 08:42 Dose: Not Given Documented by: Insulin Human Lispro (Humalog Kwikpen (Bkc)) 0 unit SC [facility]; Protocol Last Admin: 12/23/19 08:42 Dose: Not Given Documented by: Isosorbide Mononitrate (Imdur) 30 mg PO DAILY [facility] Last Admin: 12/23/19 09:57 Dose: 30 mg Documented by: Magnesium Hydroxide (Milk Of Magnesia) 30 ml PO DAILY PRN PRN PRN Reason: Constipation Melatonin (Melatonin) 3 mg PO QHS PRN PRN PRN Reason: INSOMNIA Metoprolol Tartrate (Lopressor (Beta Patrick)) 50 mg PO BID [facility] Last Admin: 12/23/19 09:56 Dose: 50 mg Documented by: Nitroglycerin (Nitrostat) 0.4 mg SUBLINGUAL Q5M PRN PRN Reason: CARDIAC/CHEST PAIN Ondansetron HCl (Zofran) 4 mg IV Q8H PRN PRN PRN Reason: NAUSEA/VOMITING Last Admin: 12/22/19 02:05 Dose: 4 mg Documented by: Oxycodone HCl (Oxyir) 5 mg PO Q4H PRN PRN PRN Reason: Pain Score 4-5/10 Last Admin: 12/23/19 06:02 Dose: 5 mg Documented by: Prochlorperazine Edisylate (Compazine Iv) 5 mg IV Q4H PRN PRN PRN Reason: Breakthrough nausea/vomiting Psyllium Hydrophilic Mucilloid (Metamucil) 1 packet PO DAILY PRN PRN PRN Reason: Constipation Senna/Docusate Sodium (Senokot-S, Suzette-Colace) 2 tablet PO BID PRN PRN PRN Reason: Constipation Sodium Chloride () 10 - 40 ml IV UD PRN PRN Reason: SALINE FLUSH Last Admin: 12/22/19 15:13 Dose: 10 ml Documented by: Throat Lozenges (Cepacol Sore Throat Lozenge) 1 lozenge MUCOUS MEM Q2H PRN PRN PRN Reason: SORE THROAT Trazodone HCl (Desyrel) 300 mg PO QHS REPLACED BY [facility] Last Admin: 12/22/19 21:21 Dose: 300 mg Documented by: STROKE Vital Signs/Narrative: Vital Signs Temp Pulse Resp BP Pulse Ox 12/23/19 09:56 86 12/23/19 09:33 99.5 F H 86 16 128/71 H 97 12/23/19 07:55 93 12/23/19 07:15 71 19 H Medical Necessity - Tobacco Use Smoking Status: Current every day smoker Tobacco Use: Cigarettes Assessment/Plan All Active Problems (Last Reviewed 12/10/19 @ 16:07 by Karen Christensen MD) Acute viral syndrome (Acute) Influenza (Acute) Preoperative cardiovascular examination (Acute) Dizziness (Acute) Shortness of breath (Acute) Cellulitis of right ankle (Resolved) Right flank pain (Resolved) Right second toe ulcer (Resolved) Right upper quadrant abdominal pain (Resolved) 1. Acute right lower lobe pneumonia, no leukocytosis, not on oxygen Started on IV ceftriaxone and azithromycin; will continue same 2. COPD, not in acute exacerbation, continue on breathing treatments 3. Type 2 DM, blood sugars running slightly low, home insulin on hold, will continue with blood glucose checks and insulin sliding scale 4. Hypertension, blood pressure running slightly low today, received IV fluids overnight, improved, will continue to monitor was on metoprolol 5. CAD s/p stents, on Plavix, Imdur, metoprolol Patient has a scheduled stress test within a week 6. Anxiety/depression, on escitalopram, trazodone 7. DVT PPx- Lovenox SC Code Visit Inpatient E&M: 66533 Subs Hosp L2
--- NOTE | 2019-12-23 11:13 | EKG12_ITS ---
Test Reason : CP Blood Pressure : / mmHG Vent. Rate : 099 BPM Atrial Rate : 099 BPM P-R Int : 164 ms QRS Dur : 086 ms QT Int : 346 ms P-R-T Axes : 073 027 012 degrees QTc Int : 444 ms Normal sinus rhythm Normal ECG Confirmed by DERICK SHAVER, MOMO ([id number]), newspaper copy editor ERWIN HUFF ([id number]) on 12/30/2019 2:25:07 PM Referred By: Confirmed By:LEENA SEPULVEDA MD
[2019-12-23] MEDS: Insulin Lispro 100 UNIT/ML INSULN.PEN SC ×3 (11:24→21:35)
[2019-12-23 11:36] LABS: Bedside Glucose 202 mg/dL (70-110)
--- NOTE | 2019-12-23 13:39 | CASEMGMT ---
SYED PAPPAS Face to Face with patient for initial transition planning/care coordination assessment. SYED PAPPAS introduced self and role at [facility]. Patient sitting in chair, alert and oriented. Patient willing to participate in assessment and is able to answer all questions appropriately. Care providers, pharmacy, and demographics verified. Patient wishes to discharge home, denies need for home health at this time. Patient states she has no further needs or concerns at this time. CM to follow for discharge planning needs that may arise. PCP: Akhil Specialists: Amparo production specialist Preferred [facility]: [facility] Prescription Benefit: yes Living Will/HPOA: none LNOK: son Living Arrangements: Patient lives in apartment with 1 step to enter the home. Currently son and his girlfriend an children are staying with her. Transportation: self DME/HHC: Patient states she has cane, walker, wheelchair, and nebulizer at home. Patient denies HHC. Patient concerned that when son moves out she is going to need help with cooking and cleaning. SYED PAPPAS updated regarding information for [facility]. Disposition Plan: Patient to discharge home with family support and follow-up plans in place. Lexi BOGGS, RN, CM
[2019-12-23] MEDS: tiZANidine HCl 2 MG Tablet 4 MG PO (14:08)
--- NOTE | 2019-12-23 14:30 | CASEMGMT ---
Social Work Note SW received referral for [facility]. SW met with pt and introduced self and role at [facility]. Pt is alert and orientated x3. SW provided pt with [facility] packet and informed pt that a referral can be made for pt. Pt agreeable to [facility] Referral. Pt denied additional needs or concerns at this time. SW faxed referral to [facility]. Lexi Perez HISTORICAL GUIDE, FREIGHT CLERK
[2019-12-23] MEDS: Magnesium Hydroxide 30 ML UDC PO (16:58)
[2019-12-23 17:01] LABS: Bedside Glucose 155 mg/dL (70-110)
[2019-12-23] MEDS: traZODone 100 MG Tablet 300 MG PO (21:36)
[2019-12-23] MEDS: 0.9% Saline Lock 10 ML Syringe IV (21:38)
[2019-12-23 21:45] LABS: Bedside Glucose 150 mg/dL (70-110)
[2019-12-24] VITALS (10 sets, daily range): BP systolic 136–138; BP diastolic 57–81; PULSE 73–86; RESP 18–118; TEMP 36.6–38.3; O2SAT 93–99
[2019-12-24] MEDS: Acetaminophen 325 MG Tablet 650 MG PO ×2 (03:05→09:08)
[2019-12-24 05:38] LABS: Absolute Lymphocyte Count 1.17 X10^3/uL (0.83-4.51); Absolute Neutrophil Count 2.9 X10^3/uL (2.0-7.7); Basophil# 0.01 X10^3/uL; Basophil% 0.2 % (0-1); Eosinophils% 2.2 % (0-5); Hematocrit 33.4 % (37-47); Hemoglobin 10.8 g/dL (12.0-15.0); Lymphocyte # 1.17 X10^3/ul (4.0); Lymphocyte % 25.9 % (19-41); Mean Corp Hgb Conc 32.3 g/dL (32-36); Mean Corpuscular Hgb 27.5 pg (27.0-32.0); Mean Platelet Vol. 9.6 fl (6.2-12.0); Monocyte# 0.34 X10^3/uL; Monocyte% 7.5 % (0-10); NRBC Flagged by Analyzer 0 % (0-5); Neutrophil # 2.88 X10^3/uL (2.7-7.7); Platelet Count 150 K/mm3 (150-450); RBC Distribution Width CV 15.6 % (11.6-14.6); RBC Distribution Width SD 48.5 fl (35.1-43.9); Red Blood Count 3.93 M/mm3 (4.2-5.4); White Blood Count 4.5 K/mm3 (4.4-11.0)
[2019-12-24 05:56] LABS: ALB/GLOB Ratio 0.6 RATIO (0.9-2.4); AST(SGOT) 17 U/L (15-37); Alanine Aminotransfer ALT/SGPT 21 U/L (13-56); Albumin, Serum 2.4 g/dL (3.2-5.0); Alkaline Phosphatase 70 U/L (45-117); Anion Gap 5 (5-15); BUN 9 mg/dL (7-18); BUN/Creat Ratio 11.2 RATIO (10-20); Calcium,Total 7.7 mg/dL (8.5-10.1); Chloride 106 mmol/L (98-107); Creatinine, Serum 0.81 mg/dL (0.55-1.02); EST Glomerular Filtration Rate 77 mL/min (>60); Est Glom Filt Rate - Afr Amer 93 mL/min (>60); Estimated Creatinine Clearance 77.19 ml/min; Globulin 3.8 g/dL (2.2-4.2); Glucose 129 mg/dL (74-106); Potassium 3.8 mmol/L (3.5-5.1); Protein, Total 6.2 g/dL (6.4-8.2); Sodium Level 137 mmol/L (136-145)
[2019-12-24] MEDS: Gabapentin 300 MG Capsule PO ×2 (06:00→15:23)
[2019-12-24] MEDS: oxyCODONE 5 MG Tablet PO ×3 (06:00→15:31)
[2019-12-24 06:45] LABS: Bedside Glucose 112 mg/dL (70-110)
[2019-12-24] MEDS: Ipratropium/Albuterol Sulfate 3 ML AMPUL.NEB INHALATION (07:04)
[2019-12-24] MEDS: tiZANidine HCl 2 MG Tablet 4 MG PO ×2 (09:08→15:32)
[2019-12-24] MEDS: 0.9% Normal Saline 1,000 ML 50 ML IV (09:09)
[2019-12-24] MEDS: Isosorbide Mononitrate 30 MG Tablet PO (09:40)
[2019-12-24] MEDS: Escitalopram Oxalate 10 MG Tablet PO (09:41)
[2019-12-24] MEDS: Metoprolol Tartrate 50 MG Tablet PO (09:43)
[2019-12-24] MEDS: Famotidine 20 MG Tablet PO (09:44)
[2019-12-24] MEDS: Clopidogrel Bisulfate 75 MG Tablet PO (09:45)
[2019-12-24] MEDS: Enoxaparin 40 MG/0.4 ML Syringe SC (09:47)
[2019-12-24 11:30] LABS: Bedside Glucose 208 mg/dL (70-110)
[2019-12-24] MEDS: Insulin Lispro 100 UNIT/ML INSULN.PEN SC (11:30)
--- NOTE | 2019-12-24 11:37 | PCM.DC ---
- Discharge Diagnoses Current Active Problems: Current Active and Chronic Problems (Last Reviewed 12/10/19 @ 16:07 by Karen Christensen MD) Acute viral syndrome (Acute) Tobacco abuse (Chronic) Influenza (Acute) Reason(s) for Visit for Discharge Instructions: Fever, cough You will use the following diet at home:: Calorie/Carbohydrate Controlled (specify 1200, 1400, etc) - 1800mls, Cardiac Your food should be the consistency of: Regular Your liquids should be the consistency of: Regular/Thin Discharge Activity: Return to Normal Activity Instructions: What Is Pneumonia?, Preventing Pneumonia, Treating Pneumonia Additional Instructions: Continue to take all your medications as prescribed. Complete your antibiotics. Take note of changes to your insulin. Take humalog sliding scale as well as 10 units of Lantus. Keep a meticulous log of your blood sugar. See your primary care doctor with the log of your blood sugars. Your insulin may need to be slowly titrated up to your previous dose as you start to eat and your blood sugar comes up. Allergies/Adverse Reactions: Allergies fluoxetine HCl [From Boticcazac] Allergy (Verified 12/21/19 17:26) Unknown jittery, difficulty breathing panic attack Medications to take at Discharge Clopidogrel Bisulfate [Plavix] 75 mg PO QHS 04/28/14 Escitalopram Oxalate [Lexapro] 10 mg PO QHS 04/28/14 Metoprolol Tartrate [Lopressor (beta jihan)] 50 mg PO BID 04/28/14 Trazodone HCl 300 mg PO QHS 04/28/14 Gabapentin [Neurontin] 300 mg PO TID 02/25/17 nitroglycerin 0.4 mg sublingual tablet 0.4 mg SUBLINGUAL Q5-15M PRN 12/10/19 Tizanidine HCl 4 mg PO TID PRN 12/22/19 Acetaminophen [Tylenol Tablet] 650 mg PO Q6H PRN PRN tablet 12/24/19 Amox/Clavulanate Tablet [Augmentin Tablet] 875 mg PO Q12H 5 Days #10 tab 12/24/19 Azithromycin 500 mg PO DAILY #3 tab 12/24/19 Insulin Glargine [Lantus ([facility])] 10 units SUBCUT DAILY 30 Days #1 pen 12/24/19 Insulin Lispro [Humalog KwikPen] See Protocol SUBCUT ACHS 30 Days #1 insuln.pen 12/24/19 The following prescriptions were given: Amox/Clavulanate Tablet [Augmentin Tablet] 875 mg PO Q12H 5 Days #10 tab Transmission Status: Pending to [facility] Azithromycin 500 mg PO DAILY #3 tab Transmission Status: Pending to [facility] Insulin Lispro [Humalog KwikPen] See Protocol SUBCUT ACHS 30 Days #1 insuln.pen Transmission Status: Pending to [facility] Primary Care Physician: Christopher Landaverde MD [Primary Care Provider] - Please follow up with your Primary Care Physician in: within 1-2 weeks Test Results: Test results from this visit will be discussed in further detail at your follow-up appointment, if applicable. Proposed Discharge Date: 12/24/19
--- NOTE | 2019-12-24 11:42 | PCM.DC.SUM ---
Discharge Date and Diagnosis Date of Admission: 12/21/19 Date of Discharge: 12/24/19 - Primary Discharge Diagnosis Active and Suspected Problems (Last Reviewed 12/10/19 @ 16:07 by Karen Christensen MD) Right lower lobe pneumonia Acute influenza ruled out - Secondary Discharge Diagnosis Chronic Problems (Last Reviewed 12/10/19 @ 16:07 by Karen Christensen MD) Tobacco abuse (Chronic) History of NH (myocardial infarction) (Chronic) Hyperlipidemia (Chronic) Atherosclerosis of coronary artery of [place] without angina pectoris (Chronic) Essential hypertension (Chronic) History of coronary artery stent placement (Chronic) NORA to mLAD, NORA to pLAD 01/01/07 DM2 (diabetes mellitus, type 2) (Chronic) Hx of coronary artery disease (Chronic) COPD with acute exacerbation (Chronic) Hospital Course and Treatment Imaging Results: Clinical Impression(s) from Imaging Studies Brain CT 12/21/19 17:40 IMPRESSION: Normal unenhanced CT scan of the brain. Electronically Signed: Phoenix Holguin MD at 18:34 EST Tel , Service support , Chest X-Ray 12/21/19 17:45 IMPRESSION: Normal x-ray examination of the chest. Electronically Signed: Phoenix Holguin MD at 18:09 EST Tel , Service support , Chest X-Ray 12/22/19 09:00 IMPRESSION: Right lower lobe pneumonia or mass. Follow-up is recommended to document resolution. Electronically Signed: Phoenix Holguin MD at 15:12 EST Tel , Service support , None Operations: None Procedures: None Summary of Care Provided: The patient is a 59 year old F with past medical history of COPD, chronic back pain, hypertension, hyperlipidemia, type II DM, CAD status post NH who comes in with complaints of malaise, fever, cough, progressive shortness of breath and fatigue. Patient vitals were stable except for fever with T-max of 103.1. Rapid influenza screen was negative. Chest x-ray initially showed no acute cardiopulmonary findings. P chest x-ray showed right lower lobe pneumonia. Patient was started on IV ceftriaxone and azithromycin. She continued to gradually improve and was discharged on Augmentin and azithromycin. During her hospital stay, her blood pressure was running slightly low, she received IV fluids with improvement. Subjective: On the day of discharge, patient was seen and examined. Denied any new complaints. She feels much improved. Objective: Physical exam: General: Alert, Oriented x3, Cooperative, improved HEENT: Atraumatic, PERRLA, EOMI, Normocephalic Oral: Moist Mucosa Neck: Supple Lungs: Normal air movement, Diminished - all over lung hall Cardiovascular: Regular rate, Regular Rhythm, Normal S1, Normal S2, No murmurs Abdomen: Bowel Sounds Present, Soft, Non Tender, Non-Distended, No Hepato-splenomegaly Extremities: No edema Skin: No rashes, No breakdown Musculoskeletal: No Tenderness to Palpation of Joints or Extremities Lymphatic: No Cervical, Supraclavicular, or Inguinal Adenopathy Neurological: Cranial nerves II-XII grossly intact, Neuro grossly intact Psych/Mental Status: Normal Affect, Appropriate - Physical Exam Vitals/I&O's: Vital Signs Temp Pulse Resp BP Pulse Ox 98.6 F 86 18 138/74 H 96 12/24/19 08:30 12/24/19 09:43 12/24/19 10:20 12/24/19 09:43 12/24/19 08:30 Oxygen Delivery Method Room Air Weight: 106 kg Body Mass Index (BMI) 34.4 Finger Stick Blood Glucose 323 Intake and Output for Last 24 Hours 12/22/19 12/23/19 12/24/19 23:59 23:59 23:59 Intake Total 4460.42 / 4460.42 693.33 / 693.33 Output Total 300 / 300 Balance 4160.42 / 4160.42 693.33 / 693.33 Microbiology Past 72 Hours 12/23/19 07:51 Sputum, Expectorated/Coughed Gram Stain - Final 12/23/19 07:51 Sputum, Expectorated/Coughed Respiratory Culture - Preliminary Appears to be normal respiratory leobardo. Further studies to follow. 12/22/19 01:53 Sputum, Expectorated/Coughed Gram Stain - Final 12/22/19 01:53 Sputum, Expectorated/Coughed Respiratory Culture - Preliminary Appears to be normal respiratory leobardo. Further studies to follow. 12/23/19 01:33 Urine, Random Streptococcus pneumoniae Antigen (M - Final 12/23/19 01:33 Urine, Random Legionella Antigen - Final 12/21/19 18:00 Mucosa - Nasopharyngeal Respiratory Panel (PCR) - Final 12/21/19 18:00 Mucosa - Nose Influenza Types A,B Direct FA (MINI) - Final Laboratory Results 12/23/19 16:46: POC Glucose 155 H 12/23/19 21:33: POC Glucose 150 H 12/24/19 05:20: WBC 4.5, RBC 3.93 L, Hgb 10.8 L, Hct 33.4 L, MCV 85.0, MCH 27.5, MCHC 32.3, RDW Std Deviation 48.5 H, RDW Coeff of Jalil 15.6 H, Plt Count 150, MPV 9.6, Immature Gran % (Auto) 0.200, Neut % (Auto) 64.0, Lymph % (Auto) 25.9, Faulk % (Auto) 7.5, Eos % (Auto) 2.2, Baso % (Auto) 0.2, Absolute Neuts (auto) 2.9, Absolute Lymphs (auto) 1.17, Nucleated RBC % 0 12/24/19 05:20: Sodium 137, Potassium 3.8, Chloride 106, Carbon Dioxide 26.0, Anion Gap 5, BUN 9, Creatinine 0.81, Estim Creat Clear Calc 77.19, Est GFR (MDRD) Af Amer 93, Est GFR (MDRD) Non-Af 77, BUN/Creatinine Ratio 11.2, Glucose 129 H, Calcium 7.7 L, Total Bilirubin 0.50, AST 17, ALT 21, Alkaline Phosphatase 70, Total Protein 6.2 L, Albumin 2.4 L, Globulin 3.8, Albumin/Globulin Ratio 0.6 L 12/24/19 06:41: POC Glucose 112 H 12/24/19 11:16: POC Glucose 208 H Current Medications Acetaminophen (Tylenol) 650 mg PO Q6H PRN PRN PRN Reason: Pain Score 1-10/Temp > 100.7 F Last Admin: 12/24/19 09:08 Dose: 650 mg Documented by: Al Hydroxide/Mg Hydroxide (Mylanta Ii) 30 ml PO Q6H PRN PRN PRN Reason: Gastric Burning Albuterol Sulfate (Ventolin Aerosols) 2.5 mg INHALATION Q2H PRN PRN PRN Reason: dyspnea, wheezing Last Admin: 12/21/19 21:46 Dose: 2.5 mg Documented by: Albuterol/Ipratropium (Duoneb) 3 ml INHALATION Q4HWA.RT [facility] Last Admin: 12/24/19 11:01 Dose: Not Given Documented by: Clopidogrel Bisulfate (Plavix) 75 mg PO DAILY [facility] Last Admin: 12/24/19 09:45 Dose: 75 mg Documented by: Enoxaparin Sodium (Lovenox) 40 mg SC DAILY [facility] Last Admin: 12/24/19 09:47 Dose: 40 mg Documented by: Escitalopram Oxalate (Lexapro) 10 mg PO DAILY [facility] Last Admin: 12/24/19 09:41 Dose: 10 mg Documented by: Famotidine (Pepcid) 20 mg PO BID [facility] Last Admin: 12/24/19 09:44 Dose: 20 mg Documented by: Gabapentin (Neurontin) 300 mg PO TID [facility] Last Admin: 12/24/19 06:00 Dose: 300 mg Documented by: Glucagon () 1 mg IM .X1 PRN PRN Reason: Hypoglycemia Guaifenesin (Robitussin) 20 ml PO Q4H PRN PRN PRN Reason: COUGH Last Admin: 12/23/19 01:38 Dose: 20 ml Documented by: Sodium Chloride () 1,000 mls @ 50 mls/hr IV .Q20H [facility] Last Admin: 12/24/19 09:09 Dose: 50 mls/hr Documented by: Dextrose (Dextrose 10%-Water) 250 mls @ 999 mls/hr IV .Q16M PRN; Protocol PRN Reason: HYPOGLYCEMIA Sodium Chloride () 250 mls @ 15 mls/hr IV .[id number] PRN PRN Reason: Saline Flush Sodium Chloride () 250 mls @ 15 mls/hr IV .[id number] PRN PRN Reason: Additional IVPB Infusion Ceftriaxone Sodium 2 gm/ (Sodium Chloride) 50 mls @ 100 mls/hr IV QHS [facility] Last Infusion: 12/23/19 21:59 Dose: Infused Documented by: Azithromycin 500 mg/ Dextrose 255 mls @ 250 mls[facility] Last Infusion: 12/23/19 23:16 Dose: Infused Documented by: Insulin Human Lispro (Humalog Kwikpen (Bkc)) 0 unit SC [facility]; Protocol Last Admin: 12/24/19 11:30 Dose: 2 units Documented by: Isosorbide Mononitrate (Imdur) 30 mg PO DAILY [facility] Last Admin: 12/24/19 09:40 Dose: 30 mg Documented by: Magnesium Hydroxide (Milk Of Magnesia) 30 ml PO DAILY PRN PRN PRN Reason: Constipation Last Admin: 12/23/19 16:58 Dose: 30 ml Documented by: Melatonin (Melatonin) 3 mg PO QHS PRN PRN PRN Reason: INSOMNIA Metoprolol Tartrate (Lopressor (Beta Patrick)) 50 mg PO BID [facility] Last Admin: 12/24/19 09:43 Dose: 50 mg Documented by: Nitroglycerin (Nitrostat) 0.4 mg SUBLINGUAL Q5M PRN PRN Reason: CARDIAC/CHEST PAIN Ondansetron HCl (Zofran) 4 mg IV Q8H PRN PRN PRN Reason: NAUSEA/VOMITING Last Admin: 12/22/19 02:05 Dose: 4 mg Documented by: Oxycodone HCl (Oxyir) 5 mg PO Q4H PRN PRN PRN Reason: Pain Score 4-5/10 Last Admin: 12/24/19 11:30 Dose: 5 mg Documented by: Psyllium Hydrophilic Mucilloid (Metamucil) 1 packet PO DAILY PRN PRN PRN Reason: Constipation Senna/Docusate Sodium (Senokot-S, Suzette-Colace) 2 tablet PO BID PRN PRN PRN Reason: Constipation Sodium Chloride () 10 - 40 ml IV UD PRN PRN Reason: SALINE FLUSH Last Admin: 12/23/19 21:38 Dose: 20 ml Documented by: Throat Lozenges (Cepacol Sore Throat Lozenge) 1 lozenge MUCOUS MEM Q2H PRN PRN PRN Reason: SORE THROAT Tizanidine HCl (Zanaflex) 4 mg PO TID PRN PRN Reason: SPASMS Last Admin: 12/24/19 09:08 Dose: 4 mg Documented by: Trazodone HCl (Desyrel) 300 mg PO QHS [facility] Last Admin: 12/23/19 21:36 Dose: 300 mg Documented by: Discharge Diet: Low fat/ Low Cholesterol, 2000 mg Sodium Diet, Carb Control Diet Discharge Activity: Return to Normal Activity Home Medications: Medications to take at Discharge Clopidogrel Bisulfate [Plavix] 75 mg PO QHS 04/28/14 Escitalopram Oxalate [Lexapro] 10 mg PO QHS 04/28/14 Metoprolol Tartrate [Lopressor (beta patrick)] 50 mg PO BID 04/28/14 Trazodone HCl 300 mg PO QHS 04/28/14 Gabapentin [Neurontin] 300 mg PO TID 02/25/17 nitroglycerin 0.4 mg sublingual tablet 0.4 mg SUBLINGUAL Q5-15M PRN 12/10/19 Tizanidine HCl 4 mg PO TID PRN 12/22/19 Acetaminophen [Tylenol Tablet] 650 mg PO Q6H PRN PRN tab 12/24/19 Amox/Clavulanate Tablet [Augmentin Tablet] 875 mg PO Q12H 5 Days #10 tab 12/24/19 Azithromycin 500 mg PO DAILY #3 tab 12/24/19 Insulin Glargine [Lantus (BKC)] 10 units SUBCUT DAILY 30 Days #1 pen 12/24/19 Insulin Lispro [Humalog KwikPen] See Protocol SUBCUT ACHS 30 Days #1 insuln.pen 12/24/19 Oxycodone HCl/Acetaminophen [Percocet 5/325] 1 tab PO Q6H PRN PRN 3 Days #12 tab 12/25/19 Prednisone [Deltasone] 60 mg PO DAILY #15 tab 12/25/19 Following Prescrptions Were Given to Patient: Amox/Clavulanate Tablet [Augmentin Tablet] 875 mg PO Q12H 5 Days #10 tab Transmission Status: Received by [facility] [place] Azithromycin 500 mg PO DAILY #3 tab Transmission Status: Received by [facility] [place] Insulin Lispro [Humalog KwikPen] See Protocol SUBCUT ACHS 30 Days #1 insuln.pen Transmission Status: Received by [facility] [place] Insulin Glargine [Lantus (BKC)] 10 units SUBCUT DAILY 30 Days #1 pen Transmission Status: Received by [facility] [place] Primary Care Physician: Christopher Landaverde MD [Primary Care Provider] - Please follow up with your Primary Care Physician in: within 1-2 weeks Patient Instructions: What Is Pneumonia?, Preventing Pneumonia, Treating Pneumonia Disposition: Home Minutes spent on discharge:: 40 Patient Condition:: Stable Medical Necessity - Tobacco Use Smoking Status: Current every day smoker Tobacco Use: Cigarettes Meaningful Use Info Meaningful Use Diagnoses (Choose all that apply): None applicable Code Visit Inpatient E&M: 64075 Disch Hosp
--- NOTE | 2019-12-24 14:07 | NURSING ---
Student documentation reviewed.
--- NOTE | 2019-12-26 12:45 | CASEMGMT ---
SYED CM DC PHONE CALL DC DATE: 12.25.19 DC Disposition: Home Diagnosis on Discharge: RLL pneumonia LACE/STRATA: 09/08\ Attempted call to phone. No answer and no machine with name identifier. Rubina GUIDRYN RN ACM
== END 2019-12-24 16:13 | disposition home or self-care (01) | DRG 194 ==
LOC: ED 20:16 → MS3 20:29
PROVIDERS: Student in an Organized Health Care Education/Training Program; Admitting Provider Family Medicine; Emergency Provider Emergency Medicine; PCP Family Medicine; Visit Provider Internal Medicine
DX: J18.9 Pneumonia, unspecified organism (principal); J44.0 Chronic obstructive pulmonary disease with (acute) lower respiratory infection; E11.40 Type 2 diabetes mellitus with diabetic neuropathy, unspecified; I10 Essential (primary) hypertension; I25.10 Atherosclerotic heart disease of native coronary artery without angina pectoris; E78.5 Hyperlipidemia, unspecified; Z95.5 Presence of coronary angioplasty implant and graft; Z79.02 Long term (current) use of antithrombotics/antiplatelets; I25.2 Old myocardial infarction; Z79.4 Long term (current) use of insulin; F17.210 Nicotine dependence, cigarettes, uncomplicated; G89.29 Other chronic pain; M54.9 Dorsalgia, unspecified; E66.9 Obesity, unspecified; Z68.34 Body mass index [BMI] 34.0-34.9, adult
CPT/HCPCS: 36415; 70450; 71045; 71046; 80048; 80053; 81001; 82962; 83605; 84484; 85025; 87040; 87070; 87205; 87449; 87633; 87804; 93005; 94640; 97161; 99251; 99285; J7030; J7040; A4216; G0463; J0696; J2405

== ENCOUNTER 2019-12-25 11:01 | Emergency (ER) | payer MEDICARE, MEDICAID, SELFPAY ==
[2019-12-21 21:03] VITALS: BMI 34.4
[2019-12-25 11:01] VITALS: BP 196/73; PULSE 97; RESP 22; TEMP 38.1; O2SAT 94; BMI 36.5
--- NOTE | 2019-12-25 11:17 | RAD_ITS ---
STUDY: X-RAY CHEST REASON FOR EXAM: Female, 59 years old. Cough TECHNIQUE: PA and lateral views of the chest. COMPARISON: 12/22/19. FINDINGS: Cardiac silhouette unremarkable. Pulmonary vascularity unremarkable. Aorta unremarkable. Patchy right middle lobe opacity. No pleural effusions. Upper abdomen unremarkable. Osseous structures intact. No pneumothorax. RAD/Chest PA and Lateral IMPRESSION: Right middle lobe opacity may represent pneumonia in the appropriate clinical setting. Electronically Signed: Richard Sanches, at 13:28 EST Tel , Service support ,
--- NOTE | 2019-12-25 11:18 | EKG12_ITS ---
Test Reason : Blood Pressure : / mmHG Vent. Rate : 077 BPM Atrial Rate : 077 BPM P-R Int : 170 ms QRS Dur : 090 ms QT Int : 348 ms P-R-T Axes : 063 018 -17 degrees QTc Int : 393 ms Normal sinus rhythm Low voltage QRS Nonspecific T wave abnormality Abnormal ECG When compared with ECG of 21-DEC-2019 17:32, MANUAL COMPARISON REQUIRED, DATA IS UNCONFIRMED Confirmed by JALYN JEFFRIES ([id number]), editor farm journal ERWIN HUFF ([id number]) on 12/26/2019 9:58:42 AM Referred By: LOLIS Confirmed By:JALYN JEFFRIES
[2019-12-25 11:36] VITALS: PULSE 91; RESP 17
[2019-12-25] MEDS: Ipratropium/Albuterol Sulfate 3 ML AMPUL.NEB INHALATION (11:36)
[2019-12-25 11:39] LABS: Absolute Lymphocyte Count 0.69 X10^3/uL (0.83-4.51); Basophil# 0.03 X10^3/uL; Basophil% 0.5 % (0-1); Eosinophil# 0.01 X10^3/uL; Eosinophils% 0.2 % (0-5); Hemoglobin 11.8 g/dL (12.0-15.0); Lymphocyte # 0.69 X10^3/ul (4.0); Lymphocyte % 10.8 % (19-41); Mean Corp Hgb Conc 33.7 g/dL (32-36); Mean Corpuscular Hgb 28.4 pg (27.0-32.0); Mean Corpuscular Volume 84.1 fL (81-99); Mean Platelet Vol. 9.6 fl (6.2-12.0); Monocyte# 0.58 X10^3/uL; Monocyte% 9.1 % (0-10); NRBC Flagged by Analyzer 0 % (0-5); Neutrophil # 5.03 X10^3/uL (2.7-7.7); Neutrophil % 78.8 % (47-70); Platelet Count 208 K/mm3 (150-450); RBC Distribution Width CV 15.2 % (11.6-14.6); RBC Distribution Width SD 46.9 fl (35.1-43.9); Red Blood Count 4.16 M/mm3 (4.2-5.4); White Blood Count 6.4 K/mm3 (4.4-11.0)
[2019-12-25] MEDS: Ondansetron ODT 4 MG Tablet PO (11:43)
[2019-12-25] MEDS: Morphine 4 MG/ML Syringe IV (11:43)
[2019-12-25] MEDS: MethylPREDNISolone 125 MG/2 ML Vial IV (11:43)
[2019-12-25 11:53] LABS: Anion Gap 7 (5-15); BUN 6 mg/dL (7-18); BUN/Creat Ratio 7.2 RATIO (10-20); Calcium,Total 8.5 mg/dL (8.5-10.1); Chloride 104 mmol/L (98-107); Creatinine, Serum 0.83 mg/dL (0.55-1.02); EST Glomerular Filtration Rate 74 mL/min (>60); Est Glom Filt Rate - Afr Amer 90 mL/min (>60); Estimated Creatinine Clearance 75.33 ml/min; Glucose 156 mg/dL (74-106); Potassium 3.7 mmol/L (3.5-5.1); Sodium Level 139 mmol/L (136-145)
[2019-12-25 12:04] VITALS: O2SAT 99
[2019-12-25 12:11] LABS: Lactic Acid 0.7 mmol/L (0.4-1.9)
--- NOTE | 2019-12-25 13:38 | ED.DCSUM_ITS ---
- ER Visit Summary Date of Service: 12/25/19 Chief Complaint: Cough History of Present Illness: The patient is a [address] duncan. She reports that she has a cough began 2 weeks ago. She was admitted to the hospital and discharged yesterday on Zithromax and Augmentin. She reports that she is not feeling any better. She reports her cough is productive green sputum. She has shortness of breath that is mild currently and moderate at worst. She reports that she has a sharp chest pain that began yesterday during a coughing episode. States that the pain is 7-10 currently and 10 out of 10 with coughing. She reports has been nauseated and vomiting up phlegm. Physical Examination: Vitals: Stable. Afebrile. General: Well-nourished and well-developed. Head: Normocephalic atraumatic. Neck: Supple, no lymphadenopathy. No JVD. Nontender. Cardiovascular: Regular rate and rhythm. No murmurs. Respiratory: No respiratory distress. Mild wheezing bilaterally with good air movement. Abdominal: Soft, nontender, nondistended, normal bowel sounds. No guarding, rebound, or peritoneal signs. Back: Nontender. Extremities: Nontender, no edema. Skin: Normal color, no rash. Neurologic: Alert and oriented ?3. Cranial nerves II through XII are intact. Normal strength and sensation. Psych: Normal affect. Test Results: EKG is sinus at [address] changes. Is unchanged from 2 days ago. Troponin is negative. Chem-7 shows a glucose 156. Lactic acid is 0.7. CBC shows an H&H 11.8 and 35.0, sick neutrophils 79, lymphocytes of 11. Chest x-ray shows a right lower lobe infiltrate. Emergency Department Course and Treatment: Patient was treated albuterol and Atrovent aerosols. She was given morphine, Zofran, and Solu-Medrol IV. She is resting more comfortably. Treatment Plan: Pneumonia severity index is 60. Curb 65 is negative. Patient is instructed to continue her Augmentin and Zithromax. She will have prednisone added. She will be given [place] for pain. Instructed to follow-up with her primary care physician in 3 to 5 days for another exam. Return to the emergency department for any worsening symptoms. Disposition: To home in improved and stable condition. Impression: 1. Pneumonia, right lower lobe. This note was generated with [employer] dictation software. It may contain incorrect words, spelling, and punctuation that were not noted in review of the chart prior to signing ED Disposition - Plan for ED Patient: Instructions: PNEUMONIA (Adult) Prescriptions: Prednisone [Deltasone] 60 mg PO DAILY #15 tab Transmission Status: Pending to [facility] [place] Oxycodone HCl/Acetaminophen [Percocet 5/325] 1 tab PO Q6H PRN PRN 3 Days #12 tab PRN Reason: Pain Prescription Printed Referrals: Christopher Landaverde MD [Primary Care Provider] - 3-5 Days
[2019-12-25 14:11] VITALS: BP 138/77; PULSE 62; RESP 15; O2SAT 97
== END 2019-12-25 14:12 | disposition home or self-care (01) ==
LOC: ED 11:36
PROVIDERS: Emergency Provider Emergency Medicine; PCP Family Medicine
DX: J18.9 Pneumonia, unspecified organism (principal); I25.10 Atherosclerotic heart disease of native coronary artery without angina pectoris; I10 Essential (primary) hypertension; E11.9 Type 2 diabetes mellitus without complications; J44.9 Chronic obstructive pulmonary disease, unspecified; Z79.02 Long term (current) use of antithrombotics/antiplatelets; Z79.4 Long term (current) use of insulin; Z72.0 Tobacco use
CPT/HCPCS: 71046; 80048; 83605; 84484; 85025; 87040; 93005; 94640; 96361; 96374; 96375; 99285

== ENCOUNTER → 2020-01-22 07:20 | Outpatient (CLI) | payer MEDICARE, SELFPAY ==
[2019-12-21 21:03] VITALS: BMI 34.4
[2019-12-25 11:01] VITALS: BMI 36.5
--- NOTE | 2020-01-22 07:22 | ECHOD_ITS ---
Reason For Study: Dizziness, Syncope Procedure This was a 2D Doppler, Color Flow transthoracic echocardiogram. Exam performed in department. Left Ventricle Normal left ventricle. The estimated ejection fraction is 60 %. Normal diastology for age. No regional wall motion abnormalities noted. Right Ventricle Normal RV size. Normal systolic function. Atria Normal left atrium. Normal right atrium. No doppler evidence for ASD. Mitral Valve There is no mitral valve stenosis. Trivial mitral valve insufficiency. Tricuspid Valve There is no tricuspid stenosis. No tricuspid valve insufficiency. Unable to estimate RV systolic pressure due to insufficient tricuspid regurgitant envelope. Aortic Valve Trisinus/trileaflet aortic valve. There is no aortic stenosis. No aortic valve insufficiency. Pulmonic Valve There is no pulmonic valvular stenosis. No pulmonic valve insufficiency. Great Vessels Normal aortic root. Pericardium/Pleural No pericardial effusion. MMode/2D Measurements & Calculations LVIDd: 4.9 cm IVSd: 1.0 cm Ao root diam: 3.0 cm LVIDs: 3.1 cm LVPWd: 0.89 cm RVDd: 3.4 cm FS: 35.9 % LAV(MOD-bp): 42.5 ml LVAd ap4: 28.1 cm2 SV(MOD-sp4): 59.8 ml LAV(MOD-bp) Indexed: 19.0 ml/m2 EDV(MOD-sp4): 87.0 ml LAV(MOD-sp2): 45.7 ml EDV(sp4-el): 88.2 ml LAV(MOD-sp4): 32.8 ml LVAs ap4: 14.3 cm2 ESV(MOD-sp4): 27.1 ml ESV(sp4-el): 27.1 ml EF(MOD-sp4): 68.8 % EF(sp4-el): 69.2 % SV(sp4-el): 61.1 ml LA A4 area: 14.6 cm2 LA dimension(2D): 3.8 cm RA A4 area: 12.5 cm2 Doppler Measurements & Calculations MV E max pavel: 100.5 cm/sec Lat Peak E' Pavel: 10.1 cm/sec Med Peak E' Pavel: 9.4 cm/sec MV A max pavel: 69.9 cm/sec E/E' lat: 10.0 E/E' med: 10.7 MV E/A: 1.4 Ao V2 max: 130.5 cm/sec LV V1 max: 102.7 cm/sec PA V2 max: 81.5 cm/sec Ao max P.8 mmHg LV V1 max P.2 mmHg Ao V2 mean: 86.8 cm/sec Ao mean P.4 mmHg Ao V2 VTI: 29.2 cm Interpretation Summary The estimated ejection fraction is 60 %. Normal diastology for age. Trivial mitral valve insufficiency. Ordering Physician: Fabienne Christensen Referring Physician: Christopher Landaverde Performed By: Rona Rosenberg, GRACE, RVT
--- NOTE | 2020-01-23 17:34 | STRESSREP_ITS ---
Stress Test Report Date: 01/23/2020 Procedure: Pharmacologic stress nuclear imaging study Indications: Preoperative evaluation, CAD Consent: Per the patient Procedure: The patient underwent pharmacologic (Regadenoson) evaluation with a peak heart rate of 80 beats per minute (50 %predicted maximal heart rate) and a peak blood pressure of 112/52 mmHg. The baseline ECG demonstrated normal sinus rhythm. EKG during lexiscan infusion revealed no significant EKG changes. EKG post infusion revealed no significant EKG changes [There were no cardiac dysrhythmias pretest, during pharmacologic infusion, or recovery]. [There was no complaint of chest discomfort during pharmacologic infusion or recovery]. The examination was discontinued secondary to completion of protocol. Impression: 1. Lexiscan stress test test is negative for Lexiscan infusion induced EKG changes of ischemia. 2. Lexiscan stress test test is negative for Lexiscan infusion induced chest pain. 3. Results of the nuclear portion of the test is as below Myocardial perfusion imaging study: Technique: The patient was injected with 13.8 millicuries of technetium 99m Cardiolite and subsequently rest SPECT Cardiolite nuclear imaging was obtained in the horizontal long, vertical long, and short axis views. The patient underwent pharmacologic (Regadenoson) evaluation. Please see above for details. The patient was injected with 43.3 millicuries of technetium 99m Cardiolite and subsequently stress SPECT Cardiolite nuclear imaging was obtained in the horizontal long, vertical long, and short axis views. A gated Cardiolite study at peak stress was obtained. Interpretation: Rest and stress SPECT Cardiolite nuclear imaging status post realignment, normal ization, and attenuation correction demonstrate overall no significant fixed or reversible defect suggestive of significant ischemia or infarction. Gated images reveal no significant regional wall motion abnormalities. The reported LVEF is 64 %. Impression: 1. There is no evidence of significant ischemia or infarction. 2. Estimated ejection fraction is 64%. This note was generated with [employer] software. It may contain incorrect words, spelling, and punctuation that were not noted in checking the note before signing.
== END ==
PROVIDERS: PCP Family Medicine; Referring Provider Specialist; Visit Provider Specialist
DX: I25.2 Old myocardial infarction (principal); I25.10 Atherosclerotic heart disease of native coronary artery without angina pectoris; I10 Essential (primary) hypertension; Z95.5 Presence of coronary angioplasty implant and graft; R06.02 Shortness of breath; E78.5 Hyperlipidemia, unspecified; R07.9 Chest pain, unspecified
CPT/HCPCS: 78452; 93017; 93306; A9500; A4216; J2785

== ENCOUNTER → 2020-02-19 14:34 | Outpatient (CLI) | payer MEDICARE, SELFPAY ==
[2020-02-03 10:44] VITALS: BMI 34.0
--- NOTE | 2020-02-19 14:38 | RAD_ITS ---
STUDY: X-RAY - RIGHT KNEE REASON FOR EXAM: Female, 59 years old. Knee pain, injury, recent fall TECHNIQUE: 4 view(s) of the knee. COMPARISON: Comparison is made with prior examination dated November 12, 2017. FINDINGS: Normal visualized distal femur. There is evidence of a nondisplaced compression fracture of the lateral malleolus. Normal proximal tibiofibular articulation. There is mild degenerative arthrosis of the medial femorotibial compartment. Normal lateral femorotibial compartment. There is moderate degenerative arthrosis of the patellofemoral articulation. There is evidence of a moderate-sized joint effusion with a fat fluid level. RAD/Knee 4 or More Views IMPRESSION: Nondisplaced compression fracture of the lateral tibial plateau with a small joint effusion and a fat fluid level. Electronically Signed: Adam Berry, at 15:42 EDT , Service support ,
--- NOTE | 2020-02-19 14:38 | RAD_ITS ---
STUDY: X-RAY - LEFT KNEE REASON FOR EXAM: Female, 59 years old. Pain TECHNIQUE: 4 view(s) of the knee. COMPARISON: None. FINDINGS: Normal visualized distal femur. Normal visualized proximal tibia and fibula. Normal proximal tibiofibular articulation. There is mild degenerative arthrosis of the medial femorotibial compartment. Normal lateral femorotibial compartment. Normal patellofemoral articulation. There are atherosclerotic calcifications. RAD/Knee 4 or More Views IMPRESSION: Degenerative arthrosis. Electronically Signed: Adam Berry, at 15:48 EDT , Service support ,
== END ==
PROVIDERS: PCP Family Medicine; Referring Provider Family Medicine; Visit Provider Family Medicine
DX: S82.144A Nondisplaced bicondylar fracture of right tibia, initial encounter for closed fracture (principal); W19.XXXA Unspecified fall, initial encounter; M17.12 Unilateral primary osteoarthritis, left knee
CPT/HCPCS: 73564

== ENCOUNTER → 2020-03-19 16:53 | Outpatient (CLI) | payer MEDICARE, SELFPAY ==
[2020-02-03 10:44] VITALS: BMI 34.0
[2020-03-19 17:04] LABS: Red Blood Cells-Urine 0 SEEN /hpf (0-5); White Blood Cells 0 SEEN /hpf (0-5)
[2020-03-19 18:11] LABS: Absolute Lymphocyte Count 2.84 X10^3/uL (0.83-4.51); Absolute Neutrophil Count 5.5 X10^3/uL (2.0-7.7); Basophil# 0.05 X10^3/uL; Basophil% 0.5 % (0-1); Eosinophil# 0.41 X10^3/uL; Eosinophils% 4.4 % (0-5); Hematocrit 45.6 % (37-47); Hemoglobin 15.1 g/dL (12.0-15.0); Lymphocyte # 2.84 X10^3/ul (4.0); Lymphocyte % 30.5 % (19-41); Mean Corp Hgb Conc 33.1 g/dL (32-36); Mean Corpuscular Hgb 29.4 pg (27.0-32.0); Mean Corpuscular Volume 88.9 fL (81-99); Mean Platelet Vol. 9.7 fl (6.2-12.0); Monocyte# 0.55 X10^3/uL; Monocyte% 5.9 % (0-10); NRBC Flagged by Analyzer 0 % (0-5); Neutrophil # 5.45 X10^3/uL (2.7-7.7); Neutrophil % 58.5 % (47-70); Platelet Count 282 K/mm3 (150-450); RBC Distribution Width CV 14.2 % (11.6-14.6); RBC Distribution Width SD 45.3 fl (35.1-43.9); Red Blood Count 5.13 M/mm3 (4.2-5.4); White Blood Count 9.3 K/mm3 (4.4-11.0)
[2020-03-19 18:20] LABS: Color, Urine Yellow (Yellow); Glucose, Dipstick 50 mg/dl (Normal); Ketone-Dipstick 5 mg/dl (Negative); Leukocyte Esterase-Dipstick Negative /ul (Negative); Nitrite-Dipstick Negative (Negative); Occult Blood-Urine 10 /ul (Negative); Protein-Dipstick 30 mg/dl (Negative); Specific Gravity, Urine 1.025 (1.002-1.030); Urine Bilirubin Dipstick Negative (Negative); Urine Clarity Cloudy (Clear); Urine Urobilinogen Normal (Normal)
[2020-03-19 18:29] LABS: Hemoglobin A1c 9.1 % (4.2-6.3)
[2020-03-19 18:35] LABS: Microalbumin,Random Urine 26.8 mg/L (NO RANGE EST.); Microalbumin:Creatinine Ratio 12.6 mg/g CRE (<30 mg/g CRE)
[2020-03-19 18:38] LABS: ALB/GLOB Ratio 0.9 RATIO (0.9-2.4); AST(SGOT) 15 U/L (15-37); Alanine Aminotransfer ALT/SGPT 26 U/L (13-56); Albumin, Serum 3.4 g/dL (3.2-5.0); Alkaline Phosphatase 94 U/L (45-117); Anion Gap 6 (5-15); BUN 23 mg/dL (7-18); BUN/Creat Ratio 23.9 RATIO (10-20); Calcium,Total 8.9 mg/dL (8.5-10.1); Chloride 105 mmol/L (98-107); Cholesterol 147 mg/dL (200); Creatinine, Serum 0.96 mg/dL (0.55-1.02); EST Glomerular Filtration Rate 63 mL/min (>60); Est Glom Filt Rate - Afr Amer 76 mL/min (>60); Globulin 3.8 g/dL (2.2-4.2); Glucose 253 mg/dL (74-106); High Density Lipoprotein 40 mg/dL; Protein, Total 7.2 g/dL (6.4-8.2); Sodium Level 138 mmol/L (136-145); Triglycerides 306 mg/dL; Very Low Density Lipoprotein 61 mg/dL (5-40)
[2020-03-19 18:46] LABS: Bacteria RARE /hpf (None Seen); Squamous Epithelial Cells - UA 5-10 SEEN /hpf (5-10)
[2020-03-19 18:47] LABS: Mucous, Urine 1+ /hpf (<or=2+)
== END ==
PROVIDERS: PCP Family Medicine; Referring Provider Family Medicine; Visit Provider Family Medicine
DX: J44.9 Chronic obstructive pulmonary disease, unspecified (principal); E11.9 Type 2 diabetes mellitus without complications; E78.5 Hyperlipidemia, unspecified
CPT/HCPCS: 36415; 80053; 80061; 81001; 82043; 82570; 83036; 84443; 85025

== ENCOUNTER → 2020-05-12 14:51 | Outpatient (CLI) | payer MEDICARE, SELFPAY ==
[2020-02-03 10:44] VITALS: BMI 34.0
[2020-05-12 17:34] LABS: Absolute Lymphocyte Count 2.37 X10^3/uL (0.83-4.51); Absolute Neutrophil Count 6.5 X10^3/uL (2.0-7.7); Basophil# 0.04 X10^3/uL; Basophil% 0.4 % (0-1); Eosinophil# 0.48 X10^3/uL; Eosinophils% 4.8 % (0-5); Hematocrit 42.3 % (37-47); Hemoglobin 13.2 g/dL (12.0-15.0); Lymphocyte # 2.37 X10^3/ul (4.0); Lymphocyte % 23.6 % (19-41); Mean Corp Hgb Conc 31.2 g/dL (32-36); Mean Corpuscular Hgb 28.6 pg (27.0-32.0); Mean Corpuscular Volume 91.8 fL (81-99); Mean Platelet Vol. 9.6 fl (6.2-12.0); Monocyte# 0.62 X10^3/uL; Monocyte% 6.2 % (0-10); NRBC Flagged by Analyzer 0 % (0-5); Neutrophil # 6.49 X10^3/uL (2.7-7.7); Neutrophil % 64.5 % (47-70); Platelet Count 305 K/mm3 (150-450); RBC Distribution Width CV 13.7 % (11.6-14.6); RBC Distribution Width SD 45.9 fl (35.1-43.9); Red Blood Count 4.61 M/mm3 (4.2-5.4); White Blood Count 10.1 K/mm3 (4.4-11.0)
[2020-05-12 18:16] LABS: Anion Gap 6 (5-15); BUN 13 mg/dL (7-18); BUN/Creat Ratio 14.9 RATIO (10-20); Calcium,Total 8.7 mg/dL (8.5-10.1); Chloride 102 mmol/L (98-107); Creatinine, Serum 0.87 mg/dL (0.55-1.02); EST Glomerular Filtration Rate 70 mL/min (>60); Est Glom Filt Rate - Afr Amer 85 mL/min (>60); Glucose 183 mg/dL (74-106); Sodium Level 138 mmol/L (136-145); Thyroid Stim Hormone (TSH) 2.63 uIU/mL (0.358-3.74)
== END ==
PROVIDERS: PCP Family Medicine; Referring Provider Family Medicine; Visit Provider Family Medicine
DX: R60.9 Edema, unspecified (principal)
CPT/HCPCS: 36415; 80048; 83880; 84443; 85025

== ENCOUNTER → 2020-06-29 13:58 | Outpatient (CLI) | payer MEDICARE, SELFPAY ==
[2020-02-03 10:44] VITALS: BMI 34.0
--- NOTE | 2020-06-29 14:01 | CT_ITS ---
STUDY: CT RIGHT KNEE WITHOUT CONTRAST REASON FOR EXAM: Female, 59 years old. OSTEOARTHRITIS-Rt knee pain. Hx of diabetes and MO. Prior lumbar surgery and cholecystectomy RADIATION DOSAGE (If Supplied By Facility): CTDIvol = ( 7.92 ) mGy, DLP = ( 190.83 ) mGycm TECHNIQUE: Transaxial CT imaging of the knee was performed. Coronal and sagittal images were reformatted. Individualized dose optimization techniques were used for this CT. COMPARISON: X-ray 02/19/2020 FINDINGS: Normal medial femoral condyle and medial tibial plateau. Mild joint space narrowing and osteophyte formation consistent with mild arthrosis. Normal lateral femoral condyle and lateral tibial plateau. Moderate joint space narrowing and osteophyte formation consistent with moderate arthrosis. Normal proximal tibiofibular articulation. Moderate joint effusion. The quadriceps tendon is grossly normal. The patellar tendon is grossly normal. Normal Hoffa''s fat pad. The soft tissues are unremarkable. CT/Extremity Lower without Contra IMPRESSION: Moderate arthrosis with a joint effusion. Electronically Signed: Phoenix Holguin MD at 15:44 EDT Tel , Service support ,
--- NOTE | 2020-06-29 14:05 | CT_ITS ---
STUDY: CT RIGHT ANKLE WITHOUT CONTRAST REASON FOR EXAM: Female, 59 years old. PERONEAL TENDONITIS. Prior surgery to rt foot one yr ago. Order stated include metatarsals RADIATION DOSAGE (If Supplied By Facility): CTDIvol = ( 6.13 ) mGy, DLP = ( 135.33 ) mGycm TECHNIQUE: Thin section transaxial imaging of the ankle was obtained, with sagittal and coronal reconstructed images. Individualized dose optimization techniques were used for this CT. COMPARISON: None. FINDINGS: Linear radiolucencies within the lateral malleolus the fibula and the lateral aspect of the talus which may be related from prior hardware. Normal tibiotalar articulation and talar dome. Normal talus, calcaneus, navicular and cuboid tarsal bones. Small plantar and posterior calcaneal enthesophytes. Normal subtalar, talonavicular and calcaneocuboid articulations. Normal navicular-cuneiform, cuneiform tarsal bones and intercuneiform articulations. Healed pseudo-Ramirez fracture with a screw. Edema of the subcutaneous fat possibly from passive congestion. CT/Extremity Lower without Contra IMPRESSION: Diffuse soft tissue swelling possibly from passive congestion. Electronically Signed: Phoenix Holguin MD at 15:48 EDT Tel , Service support ,
== END ==
LOC: CT 14:00
PROVIDERS: PCP Family Medicine; Referring Provider Orthopaedic Surgery; Visit Provider Orthopaedic Surgery
DX: M76.71 Peroneal tendinitis, right leg (principal)
CPT/HCPCS: 73700

== ENCOUNTER → 2020-07-21 10:26 | Outpatient (CLI) | payer MEDICARE, SELFPAY ==
[2020-07-10 10:22] VITALS: BMI 36.5
[2020-07-21 10:34] LABS: Red Blood Cells-Urine 0 SEEN /hpf (0-5)
[2020-07-21 12:57] LABS: Color, Urine Straw (Yellow); Glucose, Dipstick 50 mg/dl (Normal); Ketone-Dipstick Negative (Negative); Leukocyte Esterase-Dipstick 25 /ul (Negative); Nitrite-Dipstick Negative (Negative); Occult Blood-Urine Negative /ul (Negative); Protein-Dipstick 15 mg/dl (Negative); Specific Gravity, Urine 1.025 (1.002-1.030); Urine Bilirubin Dipstick Negative (Negative); Urine Clarity Clear (Clear); Urine Urobilinogen Normal (Normal)
[2020-07-21 13:16] LABS: Microalbumin,Random Urine 18.6 mg/L (NO RANGE EST.); Microalbumin:Creatinine Ratio 11.2 mg/g CRE (<30 mg/g CRE)
[2020-07-21 13:19] LABS: ALB/GLOB Ratio 0.8 RATIO (0.9-2.4); AST(SGOT) 11 U/L (15-37); Alanine Aminotransfer ALT/SGPT 20 U/L (13-56); Albumin, Serum 3.2 g/dL (3.2-5.0); Alkaline Phosphatase 107 U/L (45-117); Anion Gap 4 (5-15); BUN 16 mg/dL (7-18); BUN/Creat Ratio 16.1 RATIO (10-20); Chloride 105 mmol/L (98-107); Cholesterol 127 mg/dL (200); Creatinine, Serum 0.99 mg/dL (0.55-1.02); EST Glomerular Filtration Rate 60 mL/min (>60); Est Glom Filt Rate - Afr Amer 73 mL/min (>60); Globulin 4.2 g/dL (2.2-4.2); Glucose 221 mg/dL (74-106); High Density Lipoprotein 35 mg/dL; Potassium 4.2 mmol/L (3.5-5.1); Protein, Total 7.4 g/dL (6.4-8.2); Sodium Level 138 mmol/L (136-145); Triglycerides 281 mg/dL; Very Low Density Lipoprotein 56 mg/dL (5-40)
[2020-07-21 13:20] LABS: Hemoglobin A1c 8.6 % (3.8-5.6)
[2020-07-21 13:23] LABS: White Blood Cells 0-5 SEEN /hpf (0-5)
[2020-07-21 13:24] LABS: Hyaline Cast 0-5 SEEN /lpf (0-5); Squamous Epithelial Cells - UA 25-50 SEEN /hpf (5-10)
[2020-07-21 13:25] LABS: Bacteria 1+ /hpf (None Seen)
== END ==
PROVIDERS: PCP Family Medicine; Referring Provider Family Medicine; Visit Provider Family Medicine
DX: I25.10 Atherosclerotic heart disease of native coronary artery without angina pectoris (principal); E11.9 Type 2 diabetes mellitus without complications; E78.5 Hyperlipidemia, unspecified; Z72.0 Tobacco use
CPT/HCPCS: 36415; 80053; 80061; 81001; 82043; 82570; 83036

== ENCOUNTER → 2020-08-10 09:01 | Outpatient (CLI) | payer MEDICARE, SELFPAY ==
[2020-07-10 10:22] VITALS: BMI 36.5
--- NOTE | 2020-08-10 09:01 | EKG12_ITS ---
Test Reason : PRE OP Blood Pressure : / mmHG Vent. Rate : 073 BPM Atrial Rate : 073 BPM P-R Int : 170 ms QRS Dur : 092 ms QT Int : 398 ms P-R-T Axes : 061 038 057 degrees QTc Int : 438 ms Normal sinus rhythm Low voltage QRS Borderline ECG Confirmed by ZACH SHAVER, AMIE ([id number]), photographic editor ERWIN HUFF ([id number]) on 08/12/2020 10:14:13 AM Referred By: Kun Dejesus Confirmed By:AMIE SERRANO MD
--- NOTE | 2020-08-10 09:02 | RAD_ITS ---
STUDY: X-RAY CHEST REASON FOR EXAM: Female, 59 years old. Preop. Cough. TECHNIQUE: PA and lateral views of the chest. COMPARISON: 12/25/2019. FINDINGS: The lungs are well expanded and free of infiltrate or mass. There is clearing of the right middle lobe infiltrate noted in prior study. There is no demonstrated pleural abnormality. Normal size heart. Normal mediastinum and timothy. Normal visualized pulmonary arteries. Normal visualized aortic arch and descending thoracic aorta. There are diffuse degenerative changes of the visualized thoracic spine. There is degenerative osteoarthritis of the bilateral shoulders. There is no demonstrated abnormality of the visualized soft tissue structures of the upper abdomen. RAD/Chest PA and Lateral IMPRESSION: No acute cardiopulmonary disease. Electronically Signed: Oscar Olson DO at 16:55 EDT Tel [phone], Service support ,
[2020-08-10 10:06] LABS: Absolute Lymphocyte Count 1.93 X10^3/uL (0.83-4.51); Absolute Neutrophil Count 5.1 X10^3/uL (2.0-7.7); Basophil# 0.04 X10^3/uL; Basophil% 0.5 % (0-1); Eosinophil# 0.55 X10^3/uL; Eosinophils% 6.8 % (0-5); Hematocrit 44.8 % (37-47); Hemoglobin 14.3 g/dL (12.0-15.0); Lymphocyte # 1.93 X10^3/ul (4.0); Lymphocyte % 23.9 % (19-41); Mean Corp Hgb Conc 31.9 g/dL (32-36); Mean Corpuscular Hgb 28.1 pg (27.0-32.0); Mean Platelet Vol. 9.8 fl (6.2-12.0); Monocyte# 0.45 X10^3/uL; Monocyte% 5.6 % (0-10); NRBC Flagged by Analyzer 0 % (0-5); Neutrophil # 5.09 X10^3/uL (2.7-7.7); Platelet Count 270 K/mm3 (150-450); RBC Distribution Width CV 13.2 % (11.6-14.6); RBC Distribution Width SD 42.5 fl (35.1-43.9); Red Blood Count 5.09 M/mm3 (4.2-5.4); White Blood Count 8.1 K/mm3 (4.4-11.0)
[2020-08-10 10:37] LABS: Anion Gap 3 (5-15); BUN 15 mg/dL (7-18); BUN/Creat Ratio 15.5 RATIO (10-20); Calcium,Total 9.3 mg/dL (8.5-10.1); Chloride 103 mmol/L (98-107); Creatinine, Serum 0.97 mg/dL (0.55-1.02); EST Glomerular Filtration Rate 62 mL/min (>60); Est Glom Filt Rate - Afr Amer 75 mL/min (>60); Glucose 232 mg/dL (74-106); Potassium 4.3 mmol/L (3.5-5.1); Sodium Level 136 mmol/L (136-145)
== END ==
LOC: PSN 09:01
PROVIDERS: PCP Family Medicine; Referring Provider Orthopaedic Surgery; Visit Provider Orthopaedic Surgery
DX: Z01.810 Encounter for preprocedural cardiovascular examination (principal); Z01.811 Encounter for preprocedural respiratory examination; Z11.59 Encounter for screening for other viral diseases
CPT/HCPCS: 36415; 71046; 80048; 83036; 85025; 87635; 93005; C9803; U0003

== ENCOUNTER 2021-02-11 08:22 | Emergency (ER) | payer MEDICARE, SELFPAY ==
[2020-07-10 10:22] VITALS: BMI 36.5
[2021-02-11] VITALS (7 sets, daily range): BP systolic 123–141; BP diastolic 57–74; PULSE 67–82; RESP 18–20; TEMP 36.4; O2SAT 95–98; BMI 39.1
--- NOTE | 2021-02-11 08:37 | EKG12_ITS ---
Test Reason : CP Blood Pressure : / mmHG Vent. Rate : 073 BPM Atrial Rate : 073 BPM P-R Int : 164 ms QRS Dur : 092 ms QT Int : 368 ms P-R-T Axes : 060 022 030 degrees QTc Int : 405 ms Normal sinus rhythm Normal ECG Confirmed by JOHN SHAVER, WALT ([id number]), brands editor ALDO THOMSPON ([id number]) on 02/15/2021 2:12:21 PM Referred By: LILA Confirmed By:WALT LOPEZ MD
[2021-02-11 08:43] LABS: Absolute Lymphocyte Count 2.77 X10^3/uL (0.83-4.51); Absolute Neutrophil Count 4.3 X10^3/uL (2.0-7.7); Basophil# 0.06 X10^3/uL; Basophil% 0.7 % (0-1); Eosinophil# 0.73 X10^3/uL; Eosinophils% 8.6 % (0-5); Hematocrit 47.4 % (37-47); Hemoglobin 15.9 g/dL (12.0-15.0); Lymphocyte # 2.77 X10^3/ul (4.0); Lymphocyte % 32.5 % (19-41); Mean Corp Hgb Conc 33.5 g/dL (32-36); Mean Corpuscular Hgb 29.9 pg (27.0-32.0); Mean Corpuscular Volume 89.1 fL (81-99); Mean Platelet Vol. 10.3 fl (6.2-12.0); NRBC Flagged by Analyzer 0 % (0-5); Neutrophil # 4.34 X10^3/uL (2.7-7.7); Neutrophil % 50.8 % (47-70); Platelet Count 255 K/mm3 (150-450); RBC Distribution Width CV 13.6 % (11.6-14.6); RBC Distribution Width SD 43.8 fl (35.1-43.9); Red Blood Count 5.32 M/mm3 (4.2-5.4); White Blood Count 8.5 K/mm3 (4.4-11.0)
--- NOTE | 2021-02-11 08:52 | RAD_ITS ---
STUDY: X-RAY CHEST REASON FOR EXAM: Female, 60 years old. chest pain TECHNIQUE: Single AP portable view of the chest. COMPARISON: 08/10/2020 FINDINGS: The lungs are clear and expanded. There is no demonstrated pleural abnormality. Normal size heart. Normal mediastinum and timothy. Normal visualized pulmonary arteries. Normal visualized aortic arch and descending thoracic aorta. Normal visualized thoracic spine. Normal visualized ribs, clavicles, and shoulders. There is no demonstrated abnormality of the visualized soft tissue structures of the upper abdomen. RAD/Chest 1 View (Portable) IMPRESSION: Normal x-ray examination of the chest. Electronically Signed: Phoenix Holguin MD at 9:08 EDT Tel , Service support ,
--- NOTE | 2021-02-11 09:00 | ED.DCSUM_ITS ---
History of Present Illness Chief Complaint: Chest Pain Informant: Patient Onset: Days - 3 Timing: Intermittent, Lasts - 20 min or so Quality: Tightness Location: Substernal Current Severity: Mild Maximum Severity: Moderate Worsened By: Nothing Relieved By: Nothing Associated Symptoms: Nausea, Dyspnea, Cough. Negative for: Diaphoresis, Fever, Lightheadedness, Palpitations Narrative: 3 days or so of intermittent chest tightness and dyspnea, she states she has had it randomly throughout the day nonexertional, last 20 minutes or so, but she is having more severe episodes at night in the form of PND. She states she can lie down without any symptoms, she goes to sleep, and she wakes up suddenly gasping for air with chest tightness, sits up, then after 20 minutes or so, everything seems to gradually resolve and she can go back to sleep but this is happening multiple times per night. She has a history of 2 stents that were placed in 2007, she has had negative stress tests since then, the last one was maybe 3 years ago, she is compliant with her aspirin and Plavix, but the notes similar tightness when she needed her stents back then. She has a history of COPD without need for home oxygen, she states this does not necessarily feel like her COPD, she is not wheezing when she is tight and short of breath. She has had a nonproductive cough for similar period of time, 3 to 4 days, no fevers or chills, myalgias, loss of taste or smell, no contact with anyone with Covid that she knows of, and she has not taken the vaccine for Covid. She has had no recent leg pain or swelling. The discomfort she has is nonpleuritic when it is present. - Past Medical History (1) Atherosclerosis of coronary artery of [place] heart without angina pectoris Status: Chronic (2) DM2 (diabetes mellitus, type 2) Status: Chronic (3) Essential hypertension Status: Chronic (4) History of OR (myocardial infarction) Status: Chronic (5) History of coronary artery stent placement Status: Chronic Comment: NORA to mLAD, NORA to pLAD 01/01/07 (6) Hx of coronary artery disease Status: Chronic (7) Hyperlipidemia Status: Chronic Past Medical History - Allergies and Home Meds Allergies/Adverse Reactions: Allergies fluoxetine HCl [From Prozac] Allergy (Verified 02/11/21 08:23) Unknown jittery, difficulty breathing panic attack Primary Care Physician: Karen Christensen MD [STAFF PHYSICIAN] - 3-5 Days Surgical History: appendectomy, cholecystectomy, - - spinal discectomy/hardware, coronary artery stent, ulnar nerve surgery, arthroscopy of the knees, Smoking Status: Current every day smoker - Family History Paternal Family History: Family History (Last Reviewed 07/10/20 @ 10:22 by Reno Venegas) Mother Diabetes Hypertension Family History: Reports: COPD, Heart Disease, Hypertension Maternal Family History: Family History (Last Reviewed 07/10/20 @ 10:22 by Reno Venegas) Mother Diabetes Hypertension Family History: Reports: Heart Disease, Hypertension Review of Systems General: Reports: Malaise. Denies: Chills, Fever, Sweats Eyes: Denies: Visual changes - bilaterally, Diplopia ENT: Denies: Bilateral ear pain, Rhinorrhea, Sore throat Cardiovascular: Reports: Chest pain. Denies: Palpitations Respiratory: Reports: Dyspnea, Cough. Denies: Sputum, Dyspnea on exertion Gastrointestinal: Reports: Nausea. Denies: Abdominal pain, Vomiting, Diarrhea, Melena, Hematochezia Genitourinary: Denies: Dysuria, Hematuria, Frequency Musculoskeletal: Reports: Back pain - Chronic, unchanged/controlled. Denies: Myalgias, Neck pain, Swelling, Extremity Pain Skin: Denies: Rash, Wounds Neurological: Denies: Headache, Weakness, Numbness Physical Exam Vital Signs/Narrative: Vital Signs Temp Pulse Resp BP Pulse Ox 02/11/21 08:39 97.6 F L 76 19 H 141/74 H 98 02/11/21 08:23 97.6 F L 76 19 H 141/74 H 98 Inital Vital Signs reviewed: Yes General: Well nourished, Well developed, Obese, No Acute Distress Head: Normocephalic, Atraumatic Eyes: Perrl, EOMI ENT: Moist mucous membranes, No rhinorrhea Neck: Supple, Nontender, No lymphadenopathy, No JVD Cardiovascular: Regular rate, Regular rhythm, No murmurs. Negative for: Tachycardia Respiratory: No distress, Chest nontender, Wheezing - Slight inspiratory and expiratory diffuse, mild overall. Negative for: Rales, Rhonchi Abdomen: Soft, Nontender, Nondistended, Normal bowel sounds Back: Nontender, Normal Inspection Extremities: Nontender, No edema. Negative for: Calf Tenderness Skin: Normal color, No rash, No Trauma Neurological: Alert, Oriented x3, Cranial nerves II-XII grossly intact, Normal Strength, Normal Sensation, Normal Gait Psychological: Normal affect, Normal Mood Diagnostic/Tx/Re-eval Impressions Chest X-Ray 02/11/21 08:52 IMPRESSION: Normal x-ray examination of the chest. Electronically Signed: Phoenix Holguin MD at 9:08 EDT Tel , Service support , 02/11/21 08:52 Chest 1 View (Portable) [RAD] Stat 02/11/21 09:20 Mucosa - Nose SARS-CoV-2 Antigen (Rapid) - Final Laboratory Results 02/11/21 02/11/21 08:34 08:34 WBC 8.5 RBC 5.32 Hgb 15.9 H Hct 47.4 H MCV 89.1 MCH 29.9 MCHC 33.5 RDW Std Deviation 43.8 RDW Coeff of Jalil 13.6 Plt Count 255 MPV 10.3 Immature Gran % (Auto) 0.400 Neut % (Auto) 50.8 Lymph % (Auto) 32.5 [place] % (Auto) 7.0 Eos % (Auto) 8.6 H Baso % (Auto) 0.7 Absolute Neuts (auto) 4.3 Absolute Lymphs (auto) 2.77 Nucleated RBC % 0 Sodium 138 Potassium 3.8 Chloride 103 Carbon Dioxide 33.0 H Anion Gap 2 L BUN 13 Creatinine 0.86 Estim Creat Clear Calc 71.79 Est GFR (MDRD) Af Amer 87 Est GFR (MDRD) Non-Af 72 BUN/Creatinine Ratio 15.2 Glucose 154 H Calcium 9.5 Troponin I < 0.015 - Rhythm Strip Rhythm Strip: Sinus Rhythm Rate: 73 Ectopy: None - EKG Initial EKG Interpretation: Sinus Rhythm, No Acute Injury Pattern - normal axis and intervals. relatively low voltage throughout which is unchanged; no electrical alternans. Prior: Unchanged Treatment: Aspirin, NTG SL Repeat Eval: improved some; NTG paste placed DAILY Risk: >/= 3RF, H/O CAD, ASA within 7 days Score: 3 - Medical Decision Making Heart score: 1, 0, 1, 2, 0 = 4 Patient having symptoms that she has had before with angina. She is waking up with paroxysmal nocturnal dyspnea but is not clinically or radiographically in failure of any kind. Pain/discomfort has been intermittent, it is very mild in the ED but improved after nitroglycerin. Her enzymes are negative right now, however with her history and continuing to smoke, I recommend admitting her as a high risk chest pain to rule out acute coronary syndrome, she is amenable to that, discussed with hospitalist. After further discussion with the patient and the hospitalist, who discussed with cardiology, they decided to do a second troponin here in the ER which was 4 or 5 hours after the initial 1. It returned negative. Therefore, they decided since the patient actually ended up having a stress test around 1 year ago that was negative, that this is less likely to be cardiac in etiology, the patient was okay with going home in this case, recommending Imdur 30mg once daily and close outpatient follow-up. ED Disposition - Plan for ED Patient: Disposition: Home or Assisted Living Diagnosis: Chest pain, unspecified, History of coronary artery stent placement Instructions: ED Chest Pain, Uncertain Cause Prescriptions: Isosorbide Mononitrate [Imdur] 30 mg PO DAILY #30 tab Transmission Status: Pending to [employer] [facility] Referrals: Karen Christensen MD [STAFF PHYSICIAN] - 3-5 Days
[2021-02-11 09:04] LABS: Anion Gap 2 (5-15); BUN 13 mg/dL (7-18); BUN/Creat Ratio 15.2 RATIO (10-20); Calcium,Total 9.5 mg/dL (8.5-10.1); Chloride 103 mmol/L (98-107); Creatinine, Serum 0.86 mg/dL (0.55-1.02); EST Glomerular Filtration Rate 72 mL/min (>60); Est Glom Filt Rate - Afr Amer 87 mL/min (>60); Estimated Creatinine Clearance 71.79 ml/min; Glucose 154 mg/dL (74-106); Potassium 3.8 mmol/L (3.5-5.1); Sodium Level 138 mmol/L (136-145)
[2021-02-11] MEDS: Aspirin 81 MG TAB.CHEW 324 MG PO (09:12)
[2021-02-11] MEDS: Nitroglycerin SL (ED/IMG/CATH) 0.4 MG TABLET SL (09:13)
[2021-02-11] MEDS: Nitroglycerin Oint 1 INCH PACKET TD (11:35)
[2021-02-11] MEDS: Acetaminophen 500 MG Tablet 1000 MG PO (12:06)
== END 2021-02-11 14:23 | disposition home or self-care (01) ==
PROVIDERS: Emergency Provider Emergency Medicine; PCP Internal Medicine
DX: R07.89 Other chest pain (principal); R11.0 Nausea; J44.9 Chronic obstructive pulmonary disease, unspecified; I25.10 Atherosclerotic heart disease of native coronary artery without angina pectoris; E11.9 Type 2 diabetes mellitus without complications; I10 Essential (primary) hypertension; E78.5 Hyperlipidemia, unspecified; M54.9 Dorsalgia, unspecified; G89.29 Other chronic pain; E66.9 Obesity, unspecified; F17.200 Nicotine dependence, unspecified, uncomplicated; Z79.4 Long term (current) use of insulin; Z79.02 Long term (current) use of antithrombotics/antiplatelets; Z79.899 Other long term (current) drug therapy; I25.2 Old myocardial infarction; Z95.5 Presence of coronary angioplasty implant and graft; Z20.822 Contact with and (suspected) exposure to COVID-19
CPT/HCPCS: 71045; 80048; 84484; 85025; 87426; 93005; 99284; A4216

== ENCOUNTER → 2021-02-25 22:16 | Outpatient (CLI) | payer MEDICARE, SELFPAY ==
[2021-02-17 08:07] VITALS: BMI 36.7
== END ==
PROVIDERS: PCP Internal Medicine; Visit Provider Nurse Practitioner Acute Care
DX: G47.33 Obstructive sleep apnea (adult) (pediatric) (principal)
CPT/HCPCS: 95811

== ENCOUNTER → 2021-03-10 07:47 | Outpatient (CLI) | payer MEDICARE, SELFPAY ==
[2021-02-17 08:07] VITALS: BMI 36.7
--- NOTE | 2021-03-10 08:06 | CT_ITS ---
STUDY: LOW DOSE CT LUNG CANCER SCREENING REASON FOR EXAM: Female, 60 years old. Smoking and amp;gt; 30 pack years RADIATION DOSAGE (If Supplied By Facility): CTDIvol = ( 4.02 ) mGy, DLP = ( 142.45 ) mGycm TECHNIQUE: No contrast was administered. Low dose technique was utilized (average mAS-38 and kVp 120). 1.25 mm axial source images with a slice interval of 1.25-mm were reconstructed in lung windows. 2.5 mm axial source images with a slice interval of 2.5-mm were reconstructed in lung windows. 5.0 mm axial source images with a slice interval of 5.0-mm were reconstructed in soft tissue windows. Nodule measured using lung windows on PACS and/or independent workstation with automated measurement of minimum and maximum diameter. Nodule measurement reported as average diameter rounded to the nearest whole number. Growth is defined as an increase ins size of greater than 1.5 mm. COMPARISON: Comparison is made with prior study dated 01/26/2018. NODULES: No nodules are seen. Emphysema: No significant changes are seen. Endobronchial lesion: None Aorta: Mild degree of calcific plaques at the level of the aortic arch. Coronary arteries: Coronary artery calcification. Heart: Unremarkable. Pulmonary artery: Unremarkable. Mediastinal nodes: Small mediastinal lymph nodes Other chest and abdominal findings: CT/Low Dose CT Lung Screening IMPRESSION: Lung-RADS category 2 - Continue annual screening with LDCT in 12 months. IMPORTANT NOTES FOR USE: ACR Lung-RADS Version 1.1 Assessment Categories Release Date: 2018 Category: Coded 0-4 bases on nodule(s) with highest degree of suspicion. Negative screen is defined as categories 1 and 2; a positive screen is defined as categories 3 and 4. Category 3 and 4A nodules that are unchanged on interval CT should be coded as category 2, and individuals returned to screening in 12 months. Category 4X: Category 3 or 4 nodules with additional imaging findings that increase the suspicion of lung cancer, such as spiculation, GGN that doubles in size in 1 year, enlarged lymph notes, etc. Category Modifiers: S (significant finding unrelated to lung cancer) Electronically Signed: Adam Berry MD at 10:24 EDT , Service support ,
== END ==
PROVIDERS: PCP Internal Medicine; Referring Provider Nurse Practitioner Acute Care; Visit Provider Nurse Practitioner Acute Care
DX: Z12.2 Encounter for screening for malignant neoplasm of respiratory organs (principal); F17.210 Nicotine dependence, cigarettes, uncomplicated
CPT/HCPCS: 71271

== ENCOUNTER → 2021-04-01 11:32 | Outpatient (CLI) | payer MEDICARE, SELFPAY ==
[2021-02-17 08:07] VITALS: BMI 36.7
[2021-04-01 07:39] VITALS: BMI 37.0
== END ==
PROVIDERS: PCP Internal Medicine; Visit Provider Nurse Practitioner Acute Care
DX: G47.33 Obstructive sleep apnea (adult) (pediatric) (principal)

== ENCOUNTER 2022-10-10 12:57 | Emergency (ER) | payer MEDICARE, SELFPAY ==
[2022-10-10 12:58] VITALS: BP 122/71; PULSE 93; RESP 16; TEMP 36.8; O2SAT 98; BMI 35.2
[2022-10-10 14:01] LABS: Absolute Lymphocyte Count 2.16 X10^3/uL (0.83-4.51); Absolute Neutrophil Count 5.4 X10^3/uL (2.0-7.7); Basophil# 0.04 X10^3/uL; Basophil% 0.5 % (0-1); Eosinophil# 0.19 X10^3/uL; Eosinophils% 2.3 % (0-5); Hematocrit 43.9 % (37-47); Hemoglobin 14.7 g/dL (12.0-15.0); Lymphocyte # 2.16 X10^3/ul (0.83-4.51); Lymphocyte % 26.4 % (19-41); Mean Corp Hgb Conc 33.5 g/dL (32-36); Mean Corpuscular Hgb 29.8 pg (27.0-32.0); Mean Platelet Vol. 9.6 fl (6.2-12.0); Monocyte% 4.9 % (0-10); NRBC Flagged by Analyzer 0 % (0-5); Neutrophil # 5.38 X10^3/uL (2.7-7.7); Neutrophil % 65.8 % (47-70); Platelet Count 229 K/mm3 (150-450); RBC Distribution Width CV 13.3 % (11.6-14.6); RBC Distribution Width SD 43.7 fl (35.1-43.9); Red Blood Count 4.93 M/mm3 (4.2-5.4); White Blood Count 8.2 K/mm3 (4.4-11.0)
[2022-10-10] MEDS: 0.9% Normal Saline 1,000 ML 1000 ML IV (14:12)
[2022-10-10] MEDS: Ondansetron 4 MG/2 ML Vial IV (14:12)
[2022-10-10] MEDS: Morphine 4 MG/ML Syringe IV (14:13)
[2022-10-10] MEDS: Orphenadrine 60 MG/2 ML Ampul IM (14:15)
[2022-10-10 14:17] LABS: ALB/GLOB Ratio 0.8 RATIO (0.9-2.4); AST(SGOT) 13 U/L (15-37); Alanine Aminotransfer ALT/SGPT 31 U/L (13-56); Albumin, Serum 3.2 g/dL (3.2-5.0); Alkaline Phosphatase 97 U/L (45-117); Anion Gap 5 (5-15); BUN 13 mg/dL (7-18); BUN/Creat Ratio 14.8 RATIO (10-20); Calcium,Total 8.2 mg/dL (8.5-10.1); Chloride 106 mmol/L (98-107); Creatinine, Serum 0.88 mg/dL (0.55-1.02); EST Glomerular Filtration Rate 69 mL/min (>60); Est Glom Filt Rate - Afr Amer 84 mL/min (>60); Estimated Creatinine Clearance 68.38 ml/min; Globulin 4.1 g/dL (2.2-4.2); Glucose 298 mg/dL (74-106); Potassium 4.3 mmol/L (3.5-5.1); Protein, Total 7.3 g/dL (6.4-8.2); Sodium Level 139 mmol/L (136-145)
--- NOTE | 2022-10-10 15:58 | EDS_ITS ---
HPI History of Present Illness Chief Complaint: Back Informant: patient Onset/Context/Timing Onset: Days Context: Gradual Onset Timing: Continuous Quality: - (Spasms) Location: Thoracic and Lumbar Worsened by: improves with Nothing Relieved by: Medications Associated Symptoms Associated Symptoms: Radiation to Right Leg (Right hip), Fever and Abdominal Pain; Negative for Numbness, Tingling, Radiation to Left Leg, Dysuria, Unable to Ambulate, Unable to Transfer, Urinary Retention, Urinary Incontinence, Constipation or Fecal Incontinence Narrative Narrative: Patient presents with back pain that has been getting worse over the past couple days. Patient states it is constant. Patient states it is gradually getting worse. Patient states she has a history of chronic back pain. Patient states she has been having nausea and vomiting. Patient states she feels she is dehydrated. Patient states that she feels like she has spasms in her back. Patient states her pain radiates into her right hip. Patient admits to some subjective fevers. Patient admits to some abdominal pain. Patient has a pain pump for her chronic back pain. [facility] Medical History (Updated 10/10/22 @ 16:[address] Barron Parham, ) Atherosclerosis of coronary artery of [place] heart without angina pectoris Back pain Cellulitis of right ankle Chest pain Chronic back pain greater than 3 months duration COPD with acute exacerbation Diarrhea Difficulty balancing DM2 (diabetes mellitus, type 2) Essential hypertension History of ID (myocardial infarction) Hx of coronary artery disease Hyperlipidemia Knee pain Limb weakness Muscle spasm of back Neck pain Right flank pain Right second toe ulcer Right upper quadrant abdominal pain Severe headache Shortness of breath Strain of latissimus dorsi muscle Home Medications clopidogrel 75 mg tablet 75 mg PO QHS blood thinner 04/28/14 [History Last Taken 02/10/21] metoprolol tartrate 50 mg tablet 50 mg PO BID Heart 04/28/14 [History Last Taken 02/10/21] nitroglycerin 0.4 mg sublingual tablet 0.4 mg sublingual Q5-15M PRN Angina 12/10/19 [History Last Taken Unknown] Morphine Pain Pump pump Infiltration DAILY 02/11/21 [History Last Taken 02/11/21] Trazodone Hcl 300 mg PO QHS SLEEP 02/11/21 [History Last Taken 02/10/21] escitalopram oxalate 20 mg tablet 20 mg PO DAILY DEPRESSION 02/11/21 [History Last Taken 02/10/21] gabapentin 600 mg tablet 600 mg PO TID NERVE PAIN 02/11/21 [History Last Taken 02/10/21] insulin glargine 100 unit/mL (3 mL) subcutaneous pen 58 units SQ BID DM 02/11/21 [History Last Taken 02/11/21] insulin lispro 100 unit/mL subcutaneous pen 30 units SQ TIDCM DM 02/11/21 [History Last Taken 02/10/21] isosorbide mononitrate 30 mg tablet,extended release 24 hr 30 mg PO DAILY #30 TABLETS 02/11/21 [Rx Last Taken Unknown] simvastatin 40 mg tablet 40 mg PO QHS CHOLESTEROL 02/11/21 [History Last Taken 02/10/21] hydroxyzine HCl 50 mg tablet 50 mg PO QHS 02/16/21 [History Last Taken Unknown] albuterol sulfate 90 mcg/actuation aerosol inhaler (Proventil HFA) 2 puff inhalation Q6H PRN shortness of breath or wheezing #18 grams 06/30/21 [Rx Last Taken Unknown] budesonide-formoterol HFA 160 mcg-4.5 mcg/actuation aerosol inhaler 2 inh inhalation BID SOB #10.2 grams 06/30/21 [Rx Last Taken Unknown] fluticasone propionate 50 mcg/actuation nasal spray,suspension (Flonase Allergy Relief) 1 spray intranasal Q12H #16 grams 06/30/21 [Rx Last Taken Unknown] montelukast 10 mg tablet 10 mg PO QPM #30 tabs 06/30/21 [Rx Last Taken Unknown] Allergy/AdvReac Type Severity Reaction Status Date / Time fluoxetine HCl [From Prozac] Allergy Unknown Verified 10/10/22 12:58 Family History Mother Diabetes Hypertension Surgical History History of arthroscopic knee surgery History of section History of cholecystectomy History of coronary artery stent placement History of hysterectomy History of lumbar fusion History of open reduction and internal fixation (ORIF) procedure History of shoulder surgery Social History Smoking Status: Current every day smoker tobacco type: cigarettes alcohol intake: never substance use type: does not use caffeine: Yes Type: carbonated beverages Number of servings: 3 ROS ROS ED Constitutional Constitutional ED: Denies chills or fever(s) Eyes Eyes: Denies blurry vision or change in vision ENT ENT ED: Denies rhinorrhea or sore throat Cardiovascular Cardiovascular: Denies chest pain or palpitations Respiratory/Chest Respiratory/Chest: Reports cough; Denies dyspnea Gastrointestinal Gastrointestinal: Reports abdominal pain, nausea and vomiting Genitourinary Genitourinary ED: Denies dysuria or hematuria Musculoskeletal Musculoskeletal: Reports back pain and neck pain Integumentary Denies abscess or rash Neurologic Neurologic: Reports headache(s); Denies weakness Allergic/Immunologic Allergic/Immunologic ED: Denies mouth swelling or urticaria EXAM Physical Exam Const Vital Signs: 10/10/22 12:58 Temperature 98.2 F Temperature Source Temporal Pulse Rate 93 Respiratory Rate 16 Blood Pressure 122/71 H Blood Pressure Mean 88 Pulse Ox 98 Oxygen Delivery Method Room Air Positive well nourished, well developed and obese General Appearance ED: well developed and NAD Nutritional Appearance: obese HEENT Reports moist mucous membranes Neck supple and no JVD Resp normal respiratory effort and clear to auscultation bilaterally Cardio regular rate and regular rhythm GI normal to inspection, nondistended, normoactive bowel sounds, soft to palpation and non-tender Back/Spine Back/Spine Narrative: There is tenderness over the lumbar paraspinal muscles. There is some mild spasm of the lumbar paraspinal muscles. Range of motion was limited in all motions of the lumbar spine secondary to pain. Straight leg raises were negative bilaterally. Lumbar Spine / Lower Back: ROM limited and straight leg raise negative bilaterally Extremity normal to inspection Neuro oriented x3 and no sensory deficits noted Motor Exam: strength 5/5 throughout MDM MDM MDM Narrative Medical decision making narrative: Patient was given IV fluids. Patient was given morphine, Zofran, and Norflex here. Patient was feeling better on reevaluation. CBC was within normal limits. Comprehensive metabolic profile showed a glucose of 298. Anion gap was normal. Patient was instructed to follow-up with her primary care physician and pain management physician in 3 to 5 days. Patient was instructed return if worse in any way. Patient understood and was agreeable with the plan. All questions were answered. Lab Data Attestation: I reviewed the patient's lab results. Labs: Laboratory Results - last 24 hr 10/10/22 10/10/22 13:55 13:55 WBC 8.2 RBC 4.93 Hgb 14.7 Hct 43.9 MCV 89.0 MCH 29.8 MCHC 33.5 RDW Std Deviation 43.7 RDW Coeff of Jalil 13.3 Plt Count 229 MPV 9.6 Immature Gran % (Auto) 0.100 Neut % (Auto) 65.8 Lymph % (Auto) 26.4 [place] % (Auto) 4.9 Eos % (Auto) 2.3 Baso % (Auto) 0.5 Absolute Neuts (auto) 5.4 Absolute Lymphs (auto) 2.16 Nucleated RBC % 0 Sodium 139 Potassium 4.3 Chloride 106 Carbon Dioxide 28.0 Anion Gap 5 BUN 13 Creatinine 0.88 Estim Creat Clear Calc 68.38 Est GFR (MDRD) Af Amer 84 Est GFR (MDRD) Non-Af 69 BUN/Creatinine Ratio 14.8 Glucose 298 H Calcium 8.2 L Total Bilirubin 0.30 AST 13 L ALT 31 Alkaline Phosphatase 97 Total Protein 7.3 Albumin 3.2 Globulin 4.1 Albumin/Globulin Ratio 0.8 L Discharge Plan Triage Chief Complaint: Back ED Provider: Barron Parham Dx/Rx/DC Orders Clinical Impression: Nausea and vomiting, Chronic back pain Instructions: ED Chronic Pain, ED Vomiting (Adult) Prescriptions: No Action nitroglycerin 0.4 mg tablet, sublingual 0.4 mg SL Q5-15M PRN (Reason: Angina) Rx Instructions: until response; do not exceed 3 doses per episode hydroxyzine HCl 50 mg tablet 50 mg PO QHS albuterol sulfate [Proventil HFA] 90 mcg/actuation HFA aerosol inhaler 2 puff INHALATION Q6H PRN (Reason: shortness of breath or wheezing) Qty: 18 3RF budesonide-formoterol 160-4.5 mcg/actuation HFA aerosol inhaler 2 inh INHALATION BID Qty: 10.2 3RF fluticasone propionate [Flonase Allergy Relief] 50 mcg/actuation spray,suspension 1 spray INTRANASAL Q12H Qty: 16 6RF Rx Instructions: administer into each nostril montelukast 10 mg tablet 10 mg PO QPM Qty: 30 3RF clopidogrel 75 MG tablet 75 mg PO QHS Label Comments: antiplatelet metoprolol tartrate 50 MG tablet 50 mg PO BID Label Comments: heart/blood pressure Morphine Pain Pump INFILT DAILY Label Comments: PT STATES RATE WAS JUST CHANGED SHE DOES NOT REMEMBER WHAT IT WAS SET AT. WAS ADJUSTED BY PAIN DOC. gabapentin 600 MG tablet 600 mg PO TID simvastatin 40 MG tablet 40 mg PO QHS insulin lispro 100 UNIT/ML insulin pen 30 units SQ TIDCM Label Comments: USE 1 SOLUTION PEN-INJECTOR FOR 20 UNITS WITH EACH MEAL escitalopram oxalate 20 MG tablet 20 mg PO DAILY insulin glargine 100 UNITS/ML insulin pen 58 units SQ BID Label Comments: Inject 120 Units subcutaneously twice daily. Trazodone Hcl 100 MG tablet 300 mg PO QHS isosorbide mononitrate 30 MG tablet 30 mg PO DAILY Qty: 30 0RF Primary Care Provider: Violeta Greenfield Referrals: Violeta Greenfield MD [Primary Care Provider] - 3-5 Days Disposition Disposition: Home, Self Care
== END 2022-10-10 16:17 | disposition home or self-care (01) ==
PROVIDERS: Emergency Provider Emergency Medicine; PCP Internal Medicine; Visit Provider Emergency Medicine
DX: R11.2 Nausea with vomiting, unspecified (principal); E11.9 Type 2 diabetes mellitus without complications; Z79.4 Long term (current) use of insulin; M54.9 Dorsalgia, unspecified; G89.29 Other chronic pain; I10 Essential (primary) hypertension; I25.10 Atherosclerotic heart disease of native coronary artery without angina pectoris; E78.5 Hyperlipidemia, unspecified; I25.2 Old myocardial infarction; F17.210 Nicotine dependence, cigarettes, uncomplicated; E66.9 Obesity, unspecified; Z95.5 Presence of coronary angioplasty implant and graft; Z79.899 Other long term (current) drug therapy
CPT/HCPCS: 80053; 85025; 96361; 96372; 96374; 96375; 99283; J7030; A4216; J2405

== ENCOUNTER 2023-05-06 13:56 | Emergency (ER) | payer MEDICARE, SELFPAY ==
[2023-05-06 13:57] VITALS: BP 139/108; PULSE 95; RESP 16; TEMP 36.6; O2SAT 97
[2023-05-06 14:05] VITALS: BMI 35.9
--- NOTE | 2023-05-06 14:14 | RAD_ITS ---
INDICATION: injury EXAMINATION/TECHNIQUE: X-RAY - RIGHT XR Foot Min 3 Views 3 VIEWS COMPARISON: Prior study dated: July 10, 2020 FINDINGS: SOFT TISSUES: No soft tissue swelling or gas. No radiopaque foreign body. BONES/JOINTS: There is a stable postsurgical screw traversing the proximal and mid fifth metatarsal. No acute fracture or subluxation.. Normal alignment. There are degenerative changes throughout the foot. No sclerotic or destructive changes observed. RAD/Foot min 3 Views IMPRESSION: Degenerative changes. Electronically Signed: Darlin Rodriguez MD at 14:44 EDT ,
--- NOTE | 2023-05-06 14:15 | ED.VIS.LOWEX ---
HPI History of Present Illness Chief Complaint: Lower Extremity Injury Detail of Chief Complaint: Injury to right foot Informant: patient Narrative Narrative: Patient presents to the emergency department with injury to the right foot that initially occurred about a month ago. Patient states she twisted her foot and does not feel it is gotten any better if anything is getting worse. She was able to bear weight as long she keeps more of her weight on the inside of her foot. Patient denies any other injuries. [facility] Medical History (Updated 05/06/23 @ 14:[address] Catalina Figueroa, DO) Atherosclerosis of coronary artery of [place] heart without angina pectoris Back pain Cellulitis of right ankle Chest pain Chronic back pain greater than 3 months duration COPD with acute exacerbation Diarrhea Difficulty balancing DM2 (diabetes mellitus, type 2) Essential hypertension History of [place] (myocardial infarction) Hx of coronary artery disease Hyperlipidemia Knee pain Limb weakness Muscle spasm of back Neck pain Right flank pain Right second toe ulcer Right upper quadrant abdominal pain Severe headache Shortness of breath Strain of latissimus dorsi muscle Home Medications clopidogrel 75 mg tablet 75 mg PO QHS blood thinner 04/28/14 [History Last Taken 02/10/21] metoprolol tartrate 50 mg tablet 50 mg PO BID Heart 04/28/14 [History Last Taken 02/10/21] nitroglycerin 0.4 mg sublingual tablet 0.4 mg sublingual Q5-15M PRN Angina 12/10/19 [History Last Taken Unknown] Morphine Pain Pump pump Infiltration DAILY 02/11/21 [History Last Taken 02/11/21] Trazodone Hcl 300 mg PO QHS SLEEP 02/11/21 [History Last Taken 02/10/21] escitalopram oxalate 20 mg tablet 20 mg PO DAILY DEPRESSION 02/11/21 [History Last Taken 02/10/21] gabapentin 600 mg tablet 600 mg PO TID NERVE PAIN 02/11/21 [History Last Taken 02/10/21] insulin glargine 100 unit/mL (3 mL) subcutaneous pen 58 units SQ BID DM 02/11/21 [History Last Taken 02/11/21] insulin lispro 100 unit/mL subcutaneous pen 30 units SQ TIDCM DM 02/11/21 [History Last Taken 02/10/21] isosorbide mononitrate 30 mg tablet,extended release 24 hr 30 mg PO DAILY #30 TABLETS 02/11/21 [Rx Last Taken Unknown] simvastatin 40 mg tablet 40 mg PO QHS CHOLESTEROL 02/11/21 [History Last Taken 02/10/21] hydroxyzine HCl 50 mg tablet 50 mg PO QHS 02/16/21 [History Last Taken Unknown] albuterol sulfate 90 mcg/actuation aerosol inhaler (Proventil HFA) 2 puff inhalation Q6H PRN shortness of breath or wheezing #18 grams 06/30/21 [Rx Last Taken Unknown] budesonide-formoterol HFA 160 mcg-4.5 mcg/actuation aerosol inhaler 2 inh inhalation BID SOB #10.2 grams 06/30/21 [Rx Last Taken Unknown] fluticasone propionate 50 mcg/actuation nasal spray,suspension (Flonase Allergy Relief) 1 spray intranasal Q12H #16 grams 06/30/21 [Rx Last Taken Unknown] montelukast 10 mg tablet 10 mg PO QPM #30 tabs 06/30/21 [Rx Last Taken Unknown] hydrocodone-acetaminophen 5-325mg 5mg-325mg 1 tab PO Q4H PRN PRN Pain 2 days #10 TABLETS 05/06/23 [Rx Last Taken Unknown] Allergy/AdvReac Type Severity Reaction Status Date / Time fluoxetine HCl [From Prozac] Allergy Unknown Verified 05/06/23 13:58 Family History Mother Diabetes Hypertension Surgical History History of arthroscopic knee surgery History of section History of cholecystectomy History of coronary artery stent placement History of hysterectomy History of lumbar fusion History of open reduction and internal fixation (ORIF) procedure History of shoulder surgery Social History Smoking Status: Current every day smoker tobacco type: cigarettes alcohol intake: never substance use type: does not use caffeine: Yes Type: carbonated beverages Number of servings: 3 ROS ROS ED Review of Systems ROS Unobtainable: other Constitutional Constitutional ED: Reports lethargy; Denies chills, fever(s), sweats or weight loss Eyes Eyes: Denies blurry vision, change in vision or diplopia ENT ENT ED: Denies rhinorrhea or sore throat Cardiovascular Cardiovascular: Denies chest pain, orthopnea or racing heartbeat Respiratory/Chest Respiratory/Chest: Denies cough, dyspnea, dyspnea on exertion, orthopnea or sputum Gastrointestinal Gastrointestinal: Denies abdominal pain, diarrhea, nausea or vomiting Genitourinary Genitourinary ED: Denies dysuria, hematuria or urinary frequency Musculoskeletal Musculoskeletal: Reports other Details: Right foot injury/pain ; Denies arthralgias, back pain, myalgias or neck pain Integumentary Denies abscess, Abrasions or rash Neurologic Neurologic: Denies headache(s) or weakness Psychiatric Psychiatric: Denies anxiety, depression or suicidal thoughts Endocrine Endocrinology: Denies polydipsia, polyphagia or polyuria Hematologic/Lymphatic Hematologic/Lymphatic: Denies easy bleeding, easy bruising or lymphadenopathy Allergic/Immunologic Allergic/Immunologic ED: Denies mouth swelling, tongue swelling or urticaria EXAM Physical Exam Const Vital Signs: 05/06/23 13:57 05/06/23 15:04 Temperature 98 F Temperature Source Temporal Pulse Rate 95 Respiratory Rate 16 18 Blood Pressure 139/108 H Blood Pressure Mean 118 Pulse Ox 97 Oxygen Delivery Method Room Air Positive well nourished and well developed General Appearance ED: well developed and NAD HEENT Reports TM's clear and moist mucous membranes normocephalic and atraumatic; Negative for trauma or tenderness Tympanic Membrane ED: Yes TM's clear Eyes PERRL and EOMs intact bilaterally General Eye ED: Negative for pale conjunctiva or scleral icterus Neck no lymphadenopathy, supple and no JVD General: Negative for tenderness Chest Wall inspection of chest normal and palpation of chest normal Chest: Negative for tenderness Resp normal respiratory effort and clear to auscultation bilaterally Effort and Inspection: Negative for respiratory distress or pain with movement Auscultation: Negative for rhonchi, wheezes or diminished lung sounds Cardio regular rate, regular rhythm, S1 normal heart sound, S2 normal heart sound and no murmurs Peripheral Pulses: pulses 2+ throughout GI normal to inspection, nondistended, normoactive bowel sounds, soft to palpation, non-tender, non-distended and no masses Back/Spine no CVA tenderness and no thoracic nor lumbar tenderness Extremity Extremity Narrative: Right foot-patient has tenderness palpation over the base of the fifth metatarsal and just inferior to the lateral malleolus. There is no obvious deformity. No ecchymosis or bruising. No obvious deformity. Neurovascular intact distally. General Extremety ED: Negative for edema General Extremity: Negative for edema Neuro oriented x3, CN's II-XII intact bilaterally, no sensory deficits noted and gait normal Sensorium / Orientation: awake, alert, oriented to person, oriented to place and oriented to time Motor Exam: strength 5/5 throughout and strength abnormal Psych mental status grossly normal Skin no rashes or lesions noted and no wounds MDM MDM MDM Narrative Medical decision making narrative: Patient presents with right foot pain a month after injury and not get better. X-rays of the right foot obtained do not reveal any fractures or dislocations. Patient will be referred to podiatry for follow-up. She does not want crutches. Patient states that she has a ankle brace at home. I will write her a prescription for a few [place] for pain. Discharged home in stable condition. Patient understands she may require further imaging if symptoms do not improve such as CT or MRI to evaluate further. Radiography Diagnostic Testing: Clinical Impression(s) from Imaging Studies Foot X-Ray 05/06/23 14:14 IMPRESSION: Degenerative changes. Electronically Signed: Darlin Rodriguez MD at 14:44 EDT , Three-view x-rays of the right foot obtained interpreted by myself as no acute fractures or dislocations. She has a prior fixation and screw in the right fifth metatarsal. The screw appears to be in good position. Radiology in agreement. Discharge Plan Triage Chief Complaint: Lower Extremity Injury ED Provider: Catalina Figueroa Dx/Rx/DC Orders Clinical Impression: Right foot sprain Instructions: ED Foot Sprain Prescriptions: New hydrocodone-acetaminophen [hydrocodone-acetaminophen] 5-325 mg tablet 1 tab PO Q4H PRN PRN (Reason: Pain) 2 Days Qty: 10 0RF No Action nitroglycerin 0.4 mg tablet, sublingual 0.4 mg SL Q5-15M PRN (Reason: Angina) Rx Instructions: until response; do not exceed 3 doses per episode hydroxyzine HCl 50 mg tablet 50 mg PO QHS albuterol sulfate [Proventil HFA] 90 mcg/actuation HFA aerosol inhaler 2 puff INHALATION Q6H PRN (Reason: shortness of breath or wheezing) Qty: 18 3RF budesonide-formoterol 160-4.5 mcg/actuation HFA aerosol inhaler 2 inh INHALATION BID Qty: 10.2 3RF fluticasone propionate [Flonase Allergy Relief] 50 mcg/actuation spray,suspension 1 spray INTRANASAL Q12H Qty: 16 6RF Rx Instructions: administer into each nostril montelukast 10 mg tablet 10 mg PO QPM Qty: 30 3RF clopidogrel 75 MG tablet 75 mg PO QHS Patient Comments: antiplatelet metoprolol tartrate 50 MG tablet 50 mg PO BID Patient Comments: heart/blood pressure Morphine Pain Pump INFILT DAILY Patient Comments: PT STATES RATE WAS JUST CHANGED SHE DOES NOT REMEMBER WHAT IT WAS SET AT. WAS ADJUSTED BY PAIN DOC. gabapentin 600 MG tablet 600 mg PO TID simvastatin 40 MG tablet 40 mg PO QHS insulin lispro 100 UNIT/ML insulin pen 30 units SQ TIDCM Patient Comments: USE 1 SOLUTION PEN-INJECTOR FOR 20 UNITS WITH EACH MEAL escitalopram oxalate 20 MG tablet 20 mg PO DAILY insulin glargine 100 UNITS/ML insulin pen 58 units SQ BID Patient Comments: Inject 120 Units subcutaneously twice daily. Trazodone Hcl 100 MG tablet 300 mg PO QHS isosorbide mononitrate 30 MG tablet 30 mg PO DAILY Qty: 30 0RF Primary Care Provider: Violeta Greenfield Referrals: Violeta Greenfield MD [Primary Care Provider] - Kun Cano DPM [Med Staff - Active Staff] - 3-5 Days Disposition Disposition: Home, Self Care Discharge Date/Time: 05/06/23 15:10
[2023-05-06 15:04] VITALS: RESP 18
== END 2023-05-06 15:10 | disposition home or self-care (01) ==
PROVIDERS: Emergency Provider Emergency Medicine; PCP Internal Medicine; Visit Provider Emergency Medicine
DX: S93.601A Unspecified sprain of right foot, initial encounter (principal); I25.10 Atherosclerotic heart disease of native coronary artery without angina pectoris; I25.2 Old myocardial infarction; F17.210 Nicotine dependence, cigarettes, uncomplicated; X58.XXXA Exposure to other specified factors, initial encounter
CPT/HCPCS: 73630; 99282